=== PATIENT | female | born 1955 | race Caucasian/White ===

== ENCOUNTER → 2016-12-26 | Outpatient (CLI) | payer OTHER ==
--- NOTE | 2016-12-26 13:39 | NM ---
EXAMINATION TYPE: NM bone scan whole body DATE OF EXAM: 12/26/2016 1:25 PM COMPARISON: Nuclear medicine three-phase bone scan August 22, 2009. HISTORY: Elevated alkaline phosphatase. Delayed whole-body scanning was performed following the injection of 27.2 mCi Tc 99m MDP. Images acq uired 3 hours post injection. FINDINGS: No suspicious scintigraphic uptake is seen in osseous structures to suggest metastatic dise ase to the bone or other suspicious abnormality. No suspicious calvarial uptake is clearly seen, eval uation slightly suboptimal without dedicated oblique or lateral projections. Lucency from prosthesis is felt present at level of left knee. Mild increased uptake right knee joint is felt product of dege nerative change. IMPRESSION: No scintigraphic evidence of metastatic disease to the bone or other suspicious abnormali ty.
== END | disposition home or self-care (01) ==
LOC: RADNMMAIN 09:55
PROVIDERS: ATTEND Family Medicine
DX: R74.8 Abnormal levels of other serum enzymes (principal); M54.5 Low back pain
CPT/HCPCS: 78306; A9503

== ENCOUNTER → 2018-07-10 | Outpatient (CLI) | payer MEDICARE ==
--- NOTE | 2018-07-13 10:47 | MM ---
Reason for exam: screening (asymptomatic). Last mammogram was performed 2 years and 8 months ago. History: Patient is postmenopausal. Took estrogen for 3 months beginning at age 28. Physical Findings: A clinical breast exam by your physician is recommended on an annual basis and results should be correlated with mammographic findings. MG Screening Mammo w CAD Bilateral CC and MLO view(s) were taken. Prior study comparison: October 25, 2015, bilateral MG screening mammo w CAD. August 17, 2012, [facility] DIGITAL RIGHT MAMMOGRAM w/CAD. There are scattered fibroglandular densities. Benign appearing bilateral calcifications. No suspicious abnormality. No significant changes when compared with prior studies. ASSESSMENT: Benign, BI-RAD 2 RECOMMENDATION: Routine screening mammogram of both breasts in 1 year.
== END | disposition home or self-care (01) ==
LOC: RADMAMWWP 13:18
PROVIDERS: ATTEND Family Medicine
DX: Z12.31 Encounter for screening mammogram for malignant neoplasm of breast (principal)
CPT/HCPCS: 77067

== ENCOUNTER → 2018-11-24 | Outpatient (CLI) | payer MEDICARE, OTHER ==
[2018-11-24 15:25] LABS: HCT 47.6 % (34.0-46.0); HGB 14.7 gm/dL (11.4-16.0); MCH 27.4 pg (25.0-35.0); MCHC 30.9 g/dL (31.0-37.0); MCV 88.6 fL (80.0-100.0); Mean Platelet Volume 7.3; Platelet Count 249 k/uL (150-450); RBC 5.37 m/uL (3.80-5.40); RDW 14.4 % (11.5-15.5); WBC 10.6 k/uL (3.8-10.6)
[2018-11-24 15:30] LABS: Appearance,Urine Cloudy (Clear); Bilirubin,Urine Negative (Negative); Blood,Urine Negative (Negative); Color,Urine Yellow; Glucose,Urine (UA) Negative (Negative); Ketones,Urine Negative (Negative); Leukocyte Esterase,Urine Large (Negative); Mucus,Urine Many /hpf; Nitrite,Urine Negative (Negative); PH, Urine 5.5 (5.0-8.0); Protein,Urine Trace (Negative); RBC,Urine 4 /hpf (0-5); Squamous Epithelial Cell,Urine 4 /hpf (0-4); Urobilinogen,Urine <2.0 mg/dL (<2.0); WBC,Urine 74 /hpf (0-5)
[2018-11-24 15:34] LABS: INR 0.9 (<1.2); Partial Thromboplastin Time 22.7 sec (22.0-30.0); Prothrombin Time 10.2 sec (9.0-12.0)
[2018-11-24 15:36] LABS: Albumin 4.5 g/dL (3.5-5.0); Calcium 10.1 mg/dL (8.4-10.2); Potassium 4.8 mmol/L (3.5-5.1); Total Bilirubin 0.6 mg/dL (0.2-1.3)
== END | disposition home or self-care (01) ==
LOC: LABPAT 14:08
PROVIDERS: ATTEND Orthopaedic Surgery
DX: Z01.818 Encounter for other preprocedural examination (principal); Z01.812 Encounter for preprocedural laboratory examination
CPT/HCPCS: 36415; 80053; 81001; 85027; 85610; 85730; 87070; 93005

== ENCOUNTER 2018-12-14 06:12 | Inpatient (IN) | payer MEDICARE, OTHER ==
[~2018-12-14 06:12] MED LIST: ACETAMINOPHEN TAB 500 MG TAB PO ONE; DEXAMETHASONE SOD PHOSPHATE 10 MG/ML 1 ML VIAL IV ONE; HYDROmorphone 0.5 MG/0.5 ML SYRINGE IVP PRN; LIDOCAINE 1% 20 ML VIAL (10MG/ML) FOR IV START INTRADERMA PRN; MELOXICAM 7.5 MG TAB PO ONE; MIDAZOLAM 2 MG/2 ML VIAL IV PRN; ONDANSETRON 4 MG/2 ML VIAL IVP ONE; TRANEXAMIC ACID 1,000 MG in SODIUM CHLORIDE 0.9% 100 ML IVPB ONE; ceFAZolin 3 GM in SODIUM CHLORIDE 0.9% 100 ML IVPB ONE; fentaNYL (PF) 50 MCG/ML 2 ML AMP IV PRN
[2018-12-14] MEDS ORDERED: ROPIVACAINE 246.25 MG, EPINEPHrine 0.5 MG, KETOROLAC 30 MG, cloNIDine HCL/PF 80 MCG, WA... MISCELLANE ONE ×5 (06:44)
[2018-12-14] MEDS: LACTATED RINGERS 1,000 ML IV SCH ×3 (07:25→20:43)
[2018-12-14] MEDS ORDERED: SUCCINYLCHOLINE CHLORIDE 100 MG/5 ML SYR IV ONE (07:30)
[2018-12-14] MEDS ORDERED: NEOSTIGMINE 1 MG/ML 10 ML VIAL ONE (07:30)
[2018-12-14] MEDS ORDERED: TRANEXAMIC ACID 1,000 MG/10 ML VIAL ONE (07:30)
[2018-12-14] MEDS ORDERED: ROCURONIUM BROMIDE 10 MG/ML 10 ML VIAL IV ONE (07:30)
[2018-12-14] MEDS ORDERED: GLYCOPYRROLATE 0.2 MG/ML 2 ML VIAL ONE (07:30)
[2018-12-14] MEDS ORDERED: HYDROmorphone (PF) 1 MG/ML ONE (07:30)
[2018-12-14] MEDS ORDERED: LIDOCAINE 1% INJ 10MG/ML (20 ML MDV) ONE (07:30)
[2018-12-14] MEDS ORDERED: PROPOFOL 10 MG/ML 20 ML VIAL IV ONE (07:30)
[2018-12-14] MEDS ORDERED: fentaNYL (PF) 50 MCG/ML 2 ML AMP ONE (07:30)
[2018-12-14] MEDS ORDERED: MIDAZOLAM 2 MG/2 ML VIAL ONE (07:30)
[2018-12-14] MEDS ORDERED: SODIUM CHLORIDE 0.9% 100 ML BAG ONE (07:30)
[2018-12-14] MEDS ORDERED: ceFAZolin 3,000 MG in SODIUM CHLORIDE 0.9% IRRIGATIO 3,000 ML IRRIGATION ONE (07:36)
[2018-12-14] MEDS ORDERED: LACTATED RINGERS 1,000 ML IV ONE (08:32)
--- NOTE | 2018-12-14 09:14 | P.OP ---
Date of Procedure: 12/14/18 Procedure(s) Performed: PREOPERATIVE DIAGNOSIS: Right knee severe osteoarthritis with genu varum POSTOPERATIVE DIAGNOSIS: Right knee severe osteoarthritis with genu varum; 2. Diminished bone quality/osteopenia/osteoporosis OPERATION: Right knee cemented total replacement arthroplasty. ANESTHESIA: Spinal ESTIMATED BLOOD LOSS: 100 ml. NAUTICAL INSTRUMENT MECHANIC: Abigail Rogers PA-C (assistance with: patient positioning, retraction, exposure, hemostasis, leg positioning, implantation, irrigation, closure, dr ronnell) COMPLICATIONS: None apparent. COMPONENTS IMPLANTED: Persona system from [place] with tibial stem extension INDICATIONS: Mrs. Garza is a 63-year-old female with a history of knee osteoarthritis. The patient's knee is end-stage, and conservative management has failed. The operation of knee replacement has been discussed at length in the office, as well as potential risks and complications. These are inclusive of, but not limited to: bleeding, infection, scarring, discomfort, blood vessel and nerve damage, need for further surgery, failure to relieve symptoms, persistence, recurrence, or worsening of problems, loosening, dislocation, wear, blood clot, pulmonary embolism, , gait dysfunction, stiffness, and other risks as discussed in the office. The patient elects to proceed and the consent form has been signed. PROCEDURE: The patient was taken to the operating room and positioned on the operating room table in the supine position. Anesthesia was initiated. Care w as taken to make sure that all pressure points were adequately padded. The operative lower extremity was prepped and draped in the usual aseptic fashion using ChloraPrep. Ioban drape was used for the case and the patient received intravenous antibiotics within one hour of the incision. A pneumotourniquet and leg knox were used for the case. The limb was exsanguinated with an Esmarch bandage and the tourniquet was inflated to 350 mmHg. Time-out was called confirming the patient's identity, side, procedure and administration of antibiotics. The incision was then created midline directly over the knee, carried down through skin and into the subcutaneous tissues and down to fascia. Full thickness subcutaneous medial flap was developed. Medial parapatellar arthrotomy was performed and the interior of the knee was inspected. There was end-stage osteoarthritis of the knee with a mild to moderate genu varum type deformity. The fat pad was excised and proximal medial release on the tibia was completed using meticulous dissection and a curved osteotome. The anterior cruciate ligament was taken down. Note was made of significant attrition of the anterior and significant degenerative appearance of the posterior cruciate ligaments. The exposure was excellent. The knee was flexed 90 degrees and the patella was everted. A spot was chosen on the femur approximately 1 cm anterior to the posterior cruciate ligament insertion and an intramedullary hole was created within the femur. The intramedullary guide was then set to 5 degrees of valgus. The distal cutting block was attached and pinned into position. An appropriate amount of distal femoral resection was set. The oscillating saw was then used to make the distal femoral cut. This cut was confirmed to be flat with the flat end of an osteotome. The retractors were placed around the tibia and the tibial surface was addressed. The angle and depth of resection was adjusted using an extramedullary cutting guide. The guide had a built-in 3 degree posterior slope cut. Once the cutting guide was adjusted appropriately and in line with the axis of the tibia and confirmed to be in good position in relation to the second metatarsal and transmalleolar axis, the tibial cut was then created with protection of the posterior neurovascular structures and the collateral ligaments. Note was made of diminished bone quality and therefore a short tibial stem extension was planned. The tibial cut surface was removed and sized. Femoral sizing was then accomplished using anterior referencing. Care was taken to analyze the posterior condyles for signs of deficiency or severe wear, and adjustments to the guide were made, as appropriate. 3 degree external rotation pins were placed. The cutting jig for the femur was applied to these pins. The planned cuts were further analyzed prior to performing them with the oscillating saw. No femoral notching was produced. Bone fragments were removed and the cut surfaces were finished, as necessary, with a reciprocating saw. Spacer block technique was then used to confirm that the flexion and extension gaps were equal. Soft tissue releases and adjustment of the tibial and/or femo ral cuts were made, as necessary, until the gaps were equal. This included release of the posterior cruciate ligament, which was tight in this patient and, if left unreleased, would have resulted in poor kinematics and possibly early loosening. The femur was then further finished for a posterior cruciate ligament substituting component. Patellar resurfacing was performed using a reamer. The size of the required patellar component was estimated and the patellar surface was then reamed down to a residual thickness which would recreate the osage thickness with the component. The exact placement of the patellar component was adjusted for position based on preoperative x-rays and intraoperative findings. Prior to placing trial components, anesthetic solution consisting of ropivicaine with epinephrine, ketorolac, and clonidine was injected carefully and methodically in a grid pattern using aspiration technique into the soft tissue around the knee circumferentially, starting with the deeper tissues first and progressing to fascia, and then finally the skin/subcutaneous tissue. Particular care was taken when injecting the posterior capsule. The trial components were inserted. The tibial tray was allowed to self center and the patella was noted to track very well. The position of the tibial component was marked and the tibia was then finished for a stemmed tibial component. Cement was mixed on the back table and applied to the final components. Trial components were removed and the cut surfaces of the bone were pulse lavaged thoroughly and dried. Cement was then applied to the tibial surface and pressurized into the surface using finger pressurization technique. The tibial component with stem extension was then applied and excess cement was removed after it was impacted securely and noted to be flush with the cut surface. In similar fashion, the cement was applied to the cut femoral surface, pressurized in using finger pressurization and the component was impacted into place. Excess cement was removed. The polyethylene spacer was then implanted and locked into position. The patellar component was then applied in similar technique and a patellar clamp was used to hold the patella in place as the cement hardened. Once the cement had fully hardened, the knee was reinspected. Any other cement extrusion was removed and final kinematic testing showed range of motion from 0 to 130 degrees with excellent stability, both medially and laterally and appropriate alignment of the leg. Patellar tracking was excellent. The knee was then thoroughly pulse lavaged with normal saline. The tourniquet was deflated and hemostasis was obtained with electrocautery and IV tranexamic acid, 1 g given at the start of the operation and 1 g at the start of closure. Closure was with #2 Ethibond in the fascia/capsule and supplemented with #2 Quill, 2-0 Vicryl suture was used for the subcutaneous tissues and 3-0 Quill for the skin. Dermabond/Steri-Strips were then applied. A lightly compressive dressing was applied using Webril and an Luc wrap. The patient was then transferred to [facility] and taken to the recovery room in stable condition. Sponge and needle counts were correct.
[2018-12-14] MEDS ORDERED: BISACODYL 10 MG SUPP RECTAL PRN (09:49)
[2018-12-14] MEDS ORDERED: NA PHOS,M-B/NA PHOS,DI-BA 133 ML ENEMA RECTAL PRN (09:49)
[2018-12-14] MEDS ORDERED: HYDROmorphone 0.5 MG/0.5 ML SYRINGE IVP PRN ×3 (09:49)
[2018-12-14] MEDS ORDERED: HYDROcodone/APAP 5-325MG 1 EACH TAB PO PRN (09:49)
[2018-12-14] MEDS ORDERED: MAGNESIUM HYDROXIDE 2,400 MG/10 ML CUP PO PRN (09:49)
[2018-12-14] MEDS ORDERED: NALOXONE 0.4 MG/ML 1 ML VIAL IV PRN (09:49)
[2018-12-14] MEDS ORDERED: ONDANSETRON 4 MG/2 ML VIAL IVP PRN (09:49)
[2018-12-14] MEDS ORDERED: ROPIVACAINE 1,100 MG, SODIUM CHLORIDE 0.9% 500 ML 330 ML MISCELLANE PRN ×2 (09:58)
--- NOTE | 2018-12-14 10:14 | XR ---
EXAMINATION TYPE: XR knee limited RT DATE OF EXAM: 12/14/2018 CLINICAL HISTORY: Right knee pain and arthritis status post total knee replacement. TECHNIQUE: Portable AP and crosstable lateral views of the right knee are obtained immediately posto peratively. COMPARISON: None. FINDINGS: Metallic hardware from total right knee arthroplasty is seen and appears satisfactory in a lignment and position. There is evidence of recent surgery with diffuse subcutaneous gas and percuta neous suprapatellar surgical drain noted. IMPRESSION: METALLIC HARDWARE FROM TOTAL RIGHT KNEE ARTHROPLASTY IS SATISFACTORY IN ALIGNMENT.
[2018-12-14 11:58] VITALS: BMI 40.4
[2018-12-14] MEDS: ceFAZolin 3 GM in SODIUM CHLORIDE 0.9% 100 ML IVPB SCH (17:45)
[2018-12-14] MEDS ORDERED: amLODIPine 10 MG TAB PO SCH (18:00)
[2018-12-14] MEDS ORDERED: SENNOSIDES-DOCUSATE SODIUM 1 EACH TAB PO SCH (21:00)
[2018-12-14] MEDS ORDERED: TEMAZEPAM 15 MG CAP PO PRN (22:00)
[2018-12-15] MEDS: HYDROcodone/APAP 5-325MG 1 EACH TAB PO PRN ×3 (00:16→13:38)
[2018-12-15] MEDS: ceFAZolin 3 GM in SODIUM CHLORIDE 0.9% 100 ML IVPB SCH (00:27)
[2018-12-15] MEDS: LACTATED RINGERS 1,000 ML IV SCH ×2 (01:07)
[2018-12-15 05:20] VITALS: TEMP 98.4
--- NOTE | 2018-12-15 07:17 | P.PN ---
Progress Note - Text 12/15 652am 63-year-old female status post total knee replacement by Dr. Alvares. Patient has an On-Q pump for postop pain control with solution running at 8 mL an hour with a VAS of 2, doing very well. Plan to continue On-Q pump infusion
[2018-12-15 08:43] VITALS: BP 114/53; PULSE 77; RESP 18
[2018-12-15 08:58] LABS: Basophils % (A) 0 %; Eosinophils % (A) 0 %; HCT 39.7 % (34.0-46.0); HGB 12.5 gm/dL (11.4-16.0); Hypochromasia Slight; Lymphocytes # (A) 1.7 k/uL (1.0-4.8); Lymphocytes % (A) 11 %; MCH 27.9 pg (25.0-35.0); MCHC 31.4 g/dL (31.0-37.0); MCV 88.7 fL (80.0-100.0); Monocytes # (A) 0.9 k/uL (0-1.0); Monocytes % (A) 6 %; Neutrophils # (A) 12.7 k/uL (1.3-7.7); Neutrophils % (A) 80 %; Platelet Count 241 k/uL (150-450); RBC 4.47 m/uL (3.80-5.40); RDW 14.7 % (11.5-15.5); WBC 15.8 k/uL (3.8-10.6)
[2018-12-15] MEDS ORDERED: RIVAROXABAN 10 MG TAB PO SCH (09:00)
[2018-12-15] MEDS ORDERED: MELOXICAM 7.5 MG TAB PO SCH (09:00)
[2018-12-15] MEDS ORDERED: ASPIRIN 81 MG PO SCH (09:00)
--- NOTE | 2018-12-15 09:43 | P.DS ---
Providers Date of admission: 12/14/18 06:12 Expected date of discharge: 12/15/18 Attending physician: Jarad Alvares Consults: 12/14/18 09:49 Consult Physician Routine Consulting Provider: Souleymane Lopez Consult Reason/Comments: Medical Management Do you want consulting provider notified?: Yes Primary care physician: Souleymane Lopez - Discharge Diagnosis(es) (1) Primary localized osteoarthritis of left knee Current Visit: Yes Status: Acute (2) Status post total left knee replacement Current Visit: Yes Status: Acute Hospital Course: This is a 63-year-old female who was last seen with complaint of continued left knee pain. The patient has a known history of degenerative arthritis of the left knee and presents to discuss surgical options. After discussion and consideration the patient elects to proceed with total left knee arthroplasty. The patient is seen preoperatively by her primary care physician and cleared for surgery. The patient is admitted to [facility] for total left knee arthroplasty. The procedures performed without complication or sequelae. He is doing well postoperatively. Vital signs are stable at discharge. Labs are stable at discharge. the patient is ambulating well with walker with minimal assistance. The patient is discharged to home on postop day #1 pending medical clearance. Please see orders and refer to the [facility] rec for accurate list of medications. Patient Condition at Discharge: Good Plan - Discharge Summary Discharge Rx Participant: Yes New Discharge Prescriptions: New Aspirin [Adult Low Dose Aspirin EC] 81 mg PO DAILY #1 tablet. HYDROcodone/APAP 5-325MG [[place] 5-325] 1 - 2 each PO Q4-6H PRN #50 tab PRN Reason: Pain Sennosides-Docusate Sodium [Senokot-S] 1 tab PO BID #60 tablet Rivaroxaban [Xarelto] 10 mg PO DAILY #5 tab No Action Aspirin 81 mg PO DAILY amLODIPine [Norvasc] 10 mg PO DAILY@1800 Atorvastatin [Lipitor] 80 mg PO DAILY@1800 Discharge Medication List Aspirin 81 mg PO DAILY 12/03/18 [History] Atorvastatin [Lipitor] 80 mg PO DAILY@1800 12/03/18 [History] amLODIPine [Norvasc] 10 mg PO DAILY@1800 12/03/18 [History] Aspirin [Adult Low Dose Aspirin EC] 81 mg PO DAILY #1 tablet. 12/15/18 [Rx] HYDROcodone/APAP 5-325MG [[place] 5-325] 1 - 2 each PO Q4-6H PRN #50 tab 12/15/18 [Rx] Rivaroxaban [Xarelto] 10 mg PO DAILY #5 tab 12/15/18 [Rx] Sennosides-Docusate Sodium [Senokot-S] 1 tab PO BID #60 tablet 12/15/18 [Rx] Follow up Appointment(s)/Referral(s): Abigail Rogers PAC [PHYSICIAN MARINE [employer] TECHNICIAN] - 2 Weeks Activity/Diet/Wound Care/Special Instructions: May bear weight as tolerated with walker. May shower if no drainage from the incision. Begin outpatient physical therapy this week. Discharge Disposition: HOME SELF-CARE
--- NOTE | 2018-12-15 16:01 | PN ---
PROGRESS NOTE DATE OF SERVICE: 12/15/2018 CHIEF COMPLAINT: Status post right TKA. HISTORY OF PRESENT ILLNESS: This lady is doing very well. She does not have a lot of difficulty with discomfort. She has not had any shortness of breath, chest pain, etc. PHYSICAL EXAMINATION: Color is good. Chest is clear. Cardiac exam is normal. Abdomen is soft, nontender. Dressing is dry. IMPRESSION: Status post right total knee arthroplasty. PLAN: She thinks she is going home today. We will follow her in the office after she leaves. MMODL / IJN: [id number] /
--- NOTE | 2018-12-15 20:28 | CONS ---
CONSULTATION CHIEF COMPLAINT: Arthritis, right knee. HISTORY OF PRESENT ILLNESS: This is another admission for this 63-year-old white female who is in for elective right TKA. She has a history of hypertension and hyperlipidemia. She has been having increasing amounts of difficulty walking on the right knee and has come in for elective total knee replacement. REVIEW OF SYSTEMS: She has had no headaches, neurologic problems, shortness of breath, chest pain, cough, hemoptysis, heart disease, murmurs, rheumatic fever, orthopnea, PND, abdominal pain, nausea, vomiting, hematemesis, melena, hematochezia, cirrhosis, gallbladder disease, renal failure, dysuria, frequency, urgency, incontinence, diabetes, etc. Past medical history, family history, and personal and social histories can all be found in her admitting summary. She is on: 1. Atorvastatin 80 once a day. 2. Amlodipine 10 once a day. 3. Vitamin D 50,000 units once a month. 4. Aspirin 81 mg. Surgically she has had: 1. Hysterectomy. 2. Appendectomy. 3. Cholecystectomy. She has quit smoking. PHYSICAL EXAMINATION: Blood pressure is 126/88, pulse 64, respirations 12, and she is afebrile. In general she appeared to be well developed, well nourished, in no acute distress. Skin color is normal. Skin is warm and dry. Lymph nodes are not enlarged. Head, ears, eyes, nose, mouth and throat are normal. Neck veins are not distended. Thyroid is not enlarged. Chest is clear. Cardiac exam is normal. Abdomen is soft, nontender. Extremities are normal except for the right knee. Neurologically she is intact. Pulses are good. IMPRESSION: 1. Osteoarthritis of the right knee. 2. Hypertension. RECOMMENDATIONS: None at this time. MMODL / IJN: [id number] /
== END 2018-12-15 14:35 | disposition home health service (06) | DRG 470 ==
LOC: 2ORMAIN 06:12 → 4SSUR 09:48
PROVIDERS: ADMIT Orthopaedic Surgery; ATTEND Orthopaedic Surgery
PROC: 0SRC0J9 Replacement of Right Knee Joint with Synthetic Substitute, Cemented, Open Approach (ICD-10-PCS; principal; 2018-12-14 07:30)
DX: M17.11 Unilateral primary osteoarthritis, right knee (principal); Z68.41 Body mass index [BMI] 40.0-44.9, adult; E66.01 Morbid (severe) obesity due to excess calories; M21.161 Varus deformity, not elsewhere classified, right knee; M81.0 Age-related osteoporosis without current pathological fracture; E11.9 Type 2 diabetes mellitus without complications; I10 Essential (primary) hypertension; E78.5 Hyperlipidemia, unspecified; Z79.82 Long term (current) use of aspirin; Z79.899 Other long term (current) drug therapy; Z87.891 Personal history of nicotine dependence; Z96.652 Presence of left artificial knee joint; Z90.710 Acquired absence of both cervix and uterus; Z90.49 Acquired absence of other specified parts of digestive tract; Z87.81 Personal history of (healed) traumatic fracture
CPT/HCPCS: 85025; 88300

== ENCOUNTER 2019-05-20 16:50 | Inpatient (IN) | payer MEDICARE, OTHER ==
[2019-05-20 18:24] VITALS: BMI 40.1
[2019-05-20] MEDS: BUDESONIDE 0.5 MG/2 ML NEBU INHALATION SCH (20:07)
[2019-05-20] MEDS: ALBUTEROL NEBULIZED 2.5 MG/3 ML INHALATION PRN (20:07)
[2019-05-20 21:00] LABS: Basophils # (A) 0.1 k/uL (0-0.2); Basophils % (A) 1 %; Eosinophils % (A) 0 %; HCT 46.5 % (34.0-46.0); HGB 14.5 gm/dL (11.4-16.0); Hypochromasia Slight; Lymphocytes # (A) 2.1 k/uL (1.0-4.8); Lymphocytes % (A) 13 %; MCH 28.1 pg (25.0-35.0); MCHC 31.2 g/dL (31.0-37.0); MCV 90.2 fL (80.0-100.0); Mean Platelet Volume 7.1; Monocytes # (A) 0.6 k/uL (0-1.0); Monocytes % (A) 4 %; Neutrophils # (A) 13.1 k/uL (1.3-7.7); Neutrophils % (A) 80 %; Platelet Count 236 k/uL (150-450); RBC 5.16 m/uL (3.80-5.40); RDW 15.2 % (11.5-15.5); WBC 16.5 k/uL (3.8-10.6)
[2019-05-20 21:22] LABS: Albumin 4.2 g/dL (3.5-5.0); Calcium 9.7 mg/dL (8.4-10.2); Potassium 3.8 mmol/L (3.5-5.1); Total Bilirubin 0.3 mg/dL (0.2-1.3); Total Protein 7.5 g/dL (6.3-8.2)
--- NOTE | 2019-05-20 21:22 | XR ---
EXAMINATION TYPE: XR chest 2V DATE OF EXAM: 05/20/2019 COMPARISON: NONE HISTORY: Pain TECHNIQUE: Frontal and lateral views of the chest are obtained. FINDINGS: Heart and mediastinum are normal. Lungs are clear. Diaphragm is normal. Bony thorax appear s normal. Pulmonary vascularity is normal. IMPRESSION: Normal chest
[2019-05-20] MEDS: DEXTROSE 5%-0.2% NACL 1,000 ML IV SCH (22:15)
[2019-05-20] MEDS: CEPHALEXIN 500 MG CAP PO SCH (22:24)
[2019-05-21] MEDS: methylPREDNISolone SOD SUCCI 40 MG/ML 1 ML VIAL IV SCH ×4 (00:07→23:40)
[2019-05-21 05:43] LABS: Appearance,Urine Clear (Clear); Bilirubin,Urine Negative (Negative); Blood,Urine Negative (Negative); Color,Urine Light Yellow; Glucose,Urine (UA) Negative (Negative); Ketones,Urine Negative (Negative); Leukocyte Esterase,Urine Negative (Negative); Nitrite,Urine Negative (Negative); Protein,Urine Negative (Negative); Specific Gravity,Urine 1.014 (1.001-1.035); Urobilinogen,Urine <2.0 mg/dL (<2.0)
[2019-05-21] MEDS: BUDESONIDE 0.5 MG/2 ML NEBU INHALATION SCH ×2 (07:41→19:25)
[2019-05-21] MEDS: ALBUTEROL NEBULIZED 2.5 MG/3 ML INHALATION PRN ×2 (07:41→19:25)
[2019-05-21] MEDS: ASPIRIN 81 MG PO SCH (08:11)
[2019-05-21] MEDS: LEVOFLOXACIN 500 MG TAB PO SCH (08:11)
[2019-05-21] MEDS: CEPHALEXIN 500 MG CAP PO SCH ×4 (08:11→21:07)
[2019-05-21] MEDS: HYDROCHLOROTHIAZIDE 50 MG TAB PO SCH (08:12)
[2019-05-21 09:44] LABS: Glucose,Whole Blood 505 mg/dL (75-99)
[2019-05-21] MEDS: DEXTROSE 5%-0.2% NACL 1,000 ML IV SCH (09:52)
[2019-05-21] MEDS: SODIUM CHLORIDE 0.9% 1,000 ML IV SCH ×2 (11:44→23:43)
[2019-05-21 11:46] LABS: Glucose,Whole Blood 362 mg/dL (75-99)
[2019-05-21] MEDS: INSULIN ASPART (NovoLOG) 100 UNIT/ML VIAL SQ SCH ×3 (11:58→21:28)
[2019-05-21] MEDS ORDERED: INSULIN DETEMIR (LEVEMIR) 100 UNIT/ML SYR SQ ONE (12:00)
[2019-05-21 17:20] LABS: Glucose,Whole Blood 239 mg/dL (75-99)
[2019-05-21] MEDS: ATORVASTATIN 80 MG TAB PO SCH (17:20)
[2019-05-21] MEDS: amLODIPine 10 MG TAB PO SCH (17:20)
--- NOTE | 2019-05-21 18:57 | HP ---
HISTORY AND PHYSICAL CHIEF COMPLAINT: Ten-day history of cough, shortness of breath, fever and chills, not responding to treatment. HISTORY OF PRESENT ILLNESS: This is the first known admission for this 63-year-old white female. She started with a URI and then went into a slightly productive cough. She was started on antibiotics. Chest x-ray suggested a minimal lower lobe infiltrate on both sides. She was started on Levaquin and came back in a few days and was not doing any better. Medrol was then added by mouth, and she continued to deteriorate. She came into the office on the day of admission with increasing shortness of breath, anterior chest discomfort and coughing up yellow sputum. She had tachycardia and it was decided that she would be admitted for IV fluids, antibiotics and updrafts. REVIEW OF SYSTEMS: She has had no syncope, neurologic problems, difficulty with vision or hearing, hemoptysis, history of heart disease, abdominal pain, nausea, vomiting, hematemesis, melena, hematochezia, jaundice, renal failure, hematuria, frequency, urgency, dysuria, diabetes, etc. Past medical history, family history, and personal and social histories reveal that she is NOT ALLERGIC TO ANY MEDICATION. She is on: 1. The Medrol Dosepak. 2. Levaquin 500 once a day. 3. Hydrochlorothiazide 50 mg a day. 4. Amlodipine 10 mg once a day. 5. Atorvastatin 80 mg at bedtime. 6. Vitamin D3 50,000 units a month. 7. Aspirin 81 mg. Remainder of her history is unremarkable. She used to smoke but does not any longer. She does not drink. PHYSICAL EXAMINATION: Blood pressure 112/76 with a pulse of 98, respirations of 36 and a temperature of 99. In general she appeared to be acutely ill. Skin was dry. Head, ears, eyes, nose, mouth and throat were normal. Neck veins were not distended. Thyroid was not enlarged. Chest demonstrated poor breath sounds bilaterally with extensive rales and rhonchi throughout. Cardiac exam demonstrated sinus tachycardia. Abdomen was soft, nontender. Extremities were normal. Neurologically she was intact. She is admitted to the hospital with the diagnoses: 1. Bronchopneumonia. 2. Bronchitis. PLAN: 1. Bed rest. 2. IV fluids. 3. IV and inhaled steroids. MMODL / IJN: [id number] /
--- NOTE | 2019-05-21 19:27 | PN ---
PROGRESS NOTE CHIEF COMPLAINT: Pneumonitis. HISTORY OF PRESENT ILLNESS: This lady is not doing any better. She is still very short of breath and very congested. She has not had a temperature during the night. PHYSICAL EXAMINATION: She is pale. Head, ears, eyes, nose, mouth and throat are normal. Neck veins are not distended. Chest demonstrates poor breath sounds with scattered rales and rhonchi. She has a very harsh and congested cough. She has some anterior chest pain when she coughs. IMPRESSION: 1. Bronchopneumonia. 2. Bronchitis. 3. Hyperglycemia. PLAN: Continue with current treatment plan, but start long-acting insulin and sliding scale. MMODL / IJN: [id number] /
[2019-05-21 20:24] LABS: Hemoglobin A1C 6.3 % (4.0-6.0)
[2019-05-21 21:12] LABS: Glucose,Whole Blood 288 mg/dL (75-99)
[2019-05-21] MEDS: BUTALB/APAP/CAFF 50-325-40MG TAB PO PRN (23:18)
[2019-05-22] MEDS ORDERED: INSULIN DETEMIR (LEVEMIR) 100 UNIT/ML SYR SQ SCH (07:00)
[2019-05-22 07:08] LABS: Glucose,Whole Blood 284 mg/dL (75-99)
[2019-05-22] MEDS: ALBUTEROL NEBULIZED 2.5 MG/3 ML INHALATION PRN ×4 (08:04→19:46)
[2019-05-22] MEDS: BUDESONIDE 0.5 MG/2 ML NEBU INHALATION SCH ×2 (08:04→19:46)
[2019-05-22] MEDS: INSULIN DETEMIR (LEVEMIR) 100 UNIT/ML SYR SQ SCH (09:01)
[2019-05-22] MEDS: INSULIN ASPART (NovoLOG) 100 UNIT/ML VIAL SQ SCH ×4 (09:01→22:14)
[2019-05-22] MEDS: BUTALB/APAP/CAFF 50-325-40MG TAB PO PRN ×2 (09:02→18:32)
[2019-05-22] MEDS: methylPREDNISolone SOD SUCCI 40 MG/ML 1 ML VIAL IV SCH ×2 (09:08→17:29)
[2019-05-22] MEDS: CEPHALEXIN 500 MG CAP PO SCH (09:08)
[2019-05-22] MEDS: ASPIRIN 81 MG PO SCH (09:11)
[2019-05-22] MEDS: LEVOFLOXACIN 500 MG TAB PO SCH (09:11)
[2019-05-22] MEDS: HYDROCHLOROTHIAZIDE 50 MG TAB PO SCH (10:25)
--- NOTE | 2019-05-22 10:28 | XR ---
EXAMINATION TYPE: XR chest 2V DATE OF EXAM: 05/22/2019 HISTORY: pneumonitis, progress. REFERENCE: Previous study dated 05/20/2019. FINDINGS: The study is rotated towards the right. Allowing for this, the lungs are clear. Pleural [facility] are clear. The heart is not enlarged. IMPRESSION: NO DEFINITE ACUTE INTRATHORACIC ABNORMALITY.
[2019-05-22 10:47] LABS: ALT 25 U/L (9-52); AST 18 U/L (14-36); African American GFR (CKD) >90 (>60 ml/min/1.73 sqM); Albumin 4.2 g/dL (3.5-5.0); Alkaline Phosphatase 165 U/L (38-126); Anion Gap 13 mmol/L; Blood Urea Nitrogen 27 mg/dL (7-17); Calcium 9.6 mg/dL (8.4-10.2); Carbon Dioxide 27 mmol/L (22-30); Chloride 98 mmol/L (98-107); Glucose 388 mg/dL (74-99); Potassium 3.7 mmol/L (3.5-5.1); Sodium 138 mmol/L (137-145); Total Bilirubin 0.4 mg/dL (0.2-1.3); Total Protein 7.4 g/dL (6.3-8.2)
[2019-05-22 10:53] LABS: Basophils # (A) 0.1 k/uL (0-0.2); Basophils % (A) 0 %; Eosinophils % (A) 0 %; HCT 45.8 % (34.0-46.0); HGB 14.4 gm/dL (11.4-16.0); Hypochromasia Moderate; Lymphocytes # (A) 0.9 k/uL (1.0-4.8); Lymphocytes % (A) 5 %; MCH 28.4 pg (25.0-35.0); MCHC 31.5 g/dL (31.0-37.0); MCV 90.2 fL (80.0-100.0); Mean Platelet Volume 6.5; Monocytes # (A) 0.6 k/uL (0-1.0); Monocytes % (A) 4 %; Neutrophils # (A) 14.9 k/uL (1.3-7.7); Neutrophils % (A) 89 %; Platelet Count 287 k/uL (150-450); RBC 5.08 m/uL (3.80-5.40); RDW 14.7 % (11.5-15.5); WBC 16.8 k/uL (3.8-10.6)
[2019-05-22] MEDS: CEFUROXIME 750 MG in SODIUM CHLORIDE 0.9% 50 ML IVPB SCH ×2 (11:06→17:28)
[2019-05-22 11:43] LABS: Glucose,Whole Blood 311 mg/dL (75-99)
[2019-05-22] MEDS: SODIUM CHLORIDE 0.9% 1,000 ML IV SCH (12:28)
[2019-05-22 17:06] LABS: Glucose,Whole Blood 262 mg/dL (75-99)
--- NOTE | 2019-05-22 17:12 | PN ---
PROGRESS NOTE CHIEF COMPLAINT: Bronchitis and pneumonitis. HISTORY OF PRESENT ILLNESS: This lady is just about the same. She still continues to have the very harsh, frequent and slightly productive cough. Blood sugars have been elevated due to steroids and these will be managed. PHYSICAL EXAMINATION: She has extensive rales, rhonchi and a harsh cough which is minimally productive. Cardiac exam is normal. IMPRESSION: 1. Bronchial pneumonia. 2. Bronchitis. 3. Elevated blood sugar secondary to steroids. PLAN: resource recovery specialist the IV antibiotics and continue with IV fluids. MMODL / IJN: [id number] /
[2019-05-22] MEDS: amLODIPine 10 MG TAB PO SCH (17:28)
[2019-05-22] MEDS: ATORVASTATIN 80 MG TAB PO SCH (17:29)
[2019-05-22 20:37] LABS: Glucose,Whole Blood 254 mg/dL (75-99)
[2019-05-23] MEDS: CEFUROXIME 750 MG in SODIUM CHLORIDE 0.9% 50 ML IVPB SCH ×4 (00:45→23:53)
[2019-05-23] MEDS: methylPREDNISolone SOD SUCCI 40 MG/ML 1 ML VIAL IV SCH ×4 (00:45→23:52)
[2019-05-23] MEDS: SODIUM CHLORIDE 0.9% 1,000 ML IV SCH ×3 (01:11→23:57)
[2019-05-23 07:09] LABS: Glucose,Whole Blood 222 mg/dL (75-99)
[2019-05-23] MEDS: INSULIN ASPART (NovoLOG) 100 UNIT/ML VIAL SQ SCH ×4 (08:29→21:32)
[2019-05-23] MEDS: HYDROCHLOROTHIAZIDE 50 MG TAB PO SCH (08:29)
[2019-05-23] MEDS: ASPIRIN 81 MG PO SCH (08:29)
[2019-05-23] MEDS: BUTALB/APAP/CAFF 50-325-40MG TAB PO PRN ×2 (08:29→17:31)
[2019-05-23] MEDS: INSULIN DETEMIR (LEVEMIR) 100 UNIT/ML SYR SQ SCH (08:29)
[2019-05-23] MEDS: BUDESONIDE 0.5 MG/2 ML NEBU INHALATION SCH ×2 (09:33→21:24)
[2019-05-23] MEDS: ALBUTEROL NEBULIZED 2.5 MG/3 ML INHALATION PRN ×2 (09:33→21:24)
[2019-05-23] MEDS: LEVOFLOXACIN 750MG-D5W PMX 750 MG in DEXTROSE/WATER 1 150ML.BAG IVPB SCH (09:46)
[2019-05-23 11:51] LABS: Glucose,Whole Blood 240 mg/dL (75-99)
--- NOTE | 2019-05-23 15:55 | PN ---
PROGRESS NOTE CHIEF COMPLAINT: Pneumonitis. HISTORY OF PRESENT ILLNESS: This lady is finally doing a bit better. She is less short of breath and less congested. Started to bring up a small amount of phlegm. She has had no hemoptysis. She has had no fever or chills. PHYSICAL EXAMINATION: She still has extensive rales, rhonchi and wheezing on inspiration and expiration throughout both lung flowers. Cardiac exam is normal. Hydration is good. Temperature is down. IMPRESSION: 1. Bronchial pneumonia, bilateral. 2. Tracheobronchitis. PLAN: Continue with treatments and she may be able to go home tomorrow or the next day. MMODL / IJN: [id number] /
[2019-05-23 17:15] LABS: Glucose,Whole Blood 167 mg/dL (75-99)
[2019-05-23] MEDS: ATORVASTATIN 80 MG TAB PO SCH (17:31)
[2019-05-23] MEDS: amLODIPine 10 MG TAB PO SCH (17:31)
[2019-05-23 20:30] LABS: Glucose,Whole Blood 209 mg/dL (75-99)
[2019-05-24] MEDS: BUTALB/APAP/CAFF 50-325-40MG TAB PO PRN ×2 (00:03→08:52)
[2019-05-24 01:13] VITALS: RESP 18; TEMP 97.9
[2019-05-24 06:23] VITALS: BP 124/74
[2019-05-24 07:09] LABS: Glucose,Whole Blood 174 mg/dL (75-99)
[2019-05-24] MEDS: ASPIRIN 81 MG PO SCH (07:48)
[2019-05-24] MEDS: INSULIN ASPART (NovoLOG) 100 UNIT/ML VIAL SQ SCH (07:48)
[2019-05-24] MEDS: HYDROCHLOROTHIAZIDE 50 MG TAB PO SCH (07:48)
[2019-05-24] MEDS: CEFUROXIME 750 MG in SODIUM CHLORIDE 0.9% 50 ML IVPB SCH (07:48)
[2019-05-24] MEDS: INSULIN DETEMIR (LEVEMIR) 100 UNIT/ML SYR SQ SCH (07:48)
[2019-05-24] MEDS: methylPREDNISolone SOD SUCCI 40 MG/ML 1 ML VIAL IV SCH (07:49)
[2019-05-24] MEDS: LEVOFLOXACIN 750MG-D5W PMX 750 MG in DEXTROSE/WATER 1 150ML.BAG IVPB SCH (09:20)
[2019-05-24] MEDS: ALBUTEROL NEBULIZED 2.5 MG/3 ML INHALATION PRN (09:22)
[2019-05-24] MEDS: BUDESONIDE 0.5 MG/2 ML NEBU INHALATION SCH (09:22)
[2019-05-24 09:25] VITALS: PULSE 80
[2019-05-24] MEDS: SODIUM CHLORIDE 0.9% 1,000 ML IV SCH (11:42)
[2019-05-24 11:43] LABS: Glucose,Whole Blood 150 mg/dL (75-99)
--- NOTE | 2019-05-24 15:04 | DS ---
DISCHARGE SUMMARY CHIEF COMPLAINT: Cough, shortness of breath and pneumonitis. HISTORY OF PRESENT ILLNESS AND PHYSICAL EXAM: Details of this lady's history and physical can be found in the initial workup. LABORATORY STUDIES: While she was in a hospital she had laboratory studies, details of which can be found in the laboratory section of her chart. COURSE IN HOSPITAL: After admission, she was placed on bedrest and started on intravenous fluids, updrafts, and antibiotics. Her shortness of breath, cough, and congestion lasted 3 or 4 days and then she she started to break. Cough became more productive and she became less short of breath. She was afebrile. She is doing well. She felt that she could go home on May 24. She will go home on usual activity, diet, medications along with antibiotics and be seen in a day or two. FINAL DIAGNOSES: 1. Bronchopneumonia. 2. Tracheobronchitis. 3. Hypertension. 4. Elevated blood sugars. OPERATIONS: None. CONSULTATIONS: None. She is improved. MMODL / IJN: [id number] /
[2019-05-24] MEDS ORDERED: CEPHALEXIN 500 MG CAP PO SCH (18:00)
[2019-05-25] MEDS ORDERED: LEVOFLOXACIN 500 MG TAB PO SCH (09:00)
[2019-05-25] MEDS ORDERED: methylPREDNISolone 4 MG TAB PO SCH (09:00)
--- NOTE | 2019-05-28 10:14 | CDI ---
Documentation Clarification Form Date: 05/28/19 From: Hue Hanley Phone: If questions call Carin Taylor @ [phone], Hours-8:30 am & 5 pm Prerna Kuhn Admit Date: 05/22/2019 1:39:00 PM Patient Name: Mary Garza Visit Number: [id number] Discharge Date: 05/24/2019 1:18:00 PM ATTENTION: The Clinical Documentation Specialists (CDI) and [facility] Coding Staff appreciate your assistance in clarifying documentation. Please respond to the clarification below the line at the bottom and electronically sign. The CDI & [facility] Coding staff will review the response and follow-up if needed. Please note: Queries are made part of the Legal Health Record. If you have any questions, please contact the author of this message via ITS. Dr. Souleymane Lopez Tracheobronchitis is documented in the DS. Please specify the acuity of this condition with terms such as: Acute Chronic Acute and chronic Acute on chronic Other (please specify in the medical record) Clinically unable to further specify Unknown MTDD
--- NOTE | 2019-06-11 15:14 | MISC ---
MISCELLANOUS REPORT There was an acute tracheobronchitis. MMODL / IJN: [id number] /
== END 2019-05-24 13:18 | disposition home or self-care (01) | DRG 195 ==
LOC: INTOOBSV 17:54 → 4MS4W 17:54 → OBSVTOIN 05-22 13:39
PROVIDERS: ADMIT Family Medicine; ATTEND Family Medicine
DX: J18.0 Bronchopneumonia, unspecified organism (principal); I10 Essential (primary) hypertension; J20.9 Acute bronchitis, unspecified; R73.9 Hyperglycemia, unspecified; T38.0X5A Adverse effect of glucocorticoids and synthetic analogues, initial encounter; Z79.82 Long term (current) use of aspirin; Z79.899 Other long term (current) drug therapy
CPT/HCPCS: 71046; 80053; 81003; 83036; 85025; 87449; 94640

== ENCOUNTER 2020-02-20 08:02 | Emergency (ER) | payer MEDICARE, OTHER ==
[2020-02-20 08:06] VITALS: TEMP 98.5
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
[2020-02-20] MEDS ORDERED: KETOROLAC 60 MG/2 ML VIAL IM STA (08:34)
[2020-02-20] MEDS ORDERED: DIAZEPAM 5 MG/ML 2 ML INJ IM ONE (08:38)
[2020-02-20 09:32] VITALS: BP 143/75; PULSE 73; RESP 16
== END 2020-02-20 09:55 | disposition home or self-care (01) ==
LOC: EC 08:02
DX: M54.41 Lumbago with sciatica, right side (principal); I10 Essential (primary) hypertension; E78.5 Hyperlipidemia, unspecified; Z79.82 Long term (current) use of aspirin; Z79.899 Other long term (current) drug therapy; Z87.891 Personal history of nicotine dependence; Z86.73 Personal history of transient ischemic attack (TIA), and cerebral infarction without residual deficits
CPT/HCPCS: 99283; 96372 ×2; J3360; J1885

== ENCOUNTER 2021-08-14 10:44 | Emergency (ER) | payer MEDICARE, OTHER ==
[2021-08-14 11:17] VITALS: RESP 18
[2021-08-14 11:22] LABS: Basophils % (A) 0 %; Eosinophils # (A) 0.2 k/uL (0-0.7); Eosinophils % (A) 1 %; HCT 44.1 % (34.0-46.0); HGB 14.2 gm/dL (11.4-16.0); Lymphocytes # (A) 0.9 k/uL (1.0-4.8); Lymphocytes % (A) 6 %; MCH 30.7 pg (25.0-35.0); MCHC 32.3 g/dL (31.0-37.0); MCV 95.2 fL (80.0-100.0); Mean Platelet Volume 7.5; Monocytes # (A) 0.6 k/uL (0-1.0); Monocytes % (A) 4 %; Neutrophils # (A) 14.2 k/uL (1.3-7.7); Neutrophils % (A) 87 %; Platelet Count 181 k/uL (150-450); RBC 4.63 m/uL (3.80-5.40); RDW 15.1 % (11.5-15.5); WBC 16.2 k/uL (3.8-10.6)
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
[2021-08-14 11:33] LABS: Albumin 3.7 g/dL (3.5-5.0); Calcium 9.3 mg/dL (8.4-10.2); Magnesium 1.3 mg/dL (1.6-2.3); Potassium 3.9 mmol/L (3.5-5.1); Total Bilirubin 0.7 mg/dL (0.2-1.3); Total Protein 6.9 g/dL (6.3-8.2)
[2021-08-14 12:09] LABS: Partial Thromboplastin Time 20.2 sec (22.0-30.0); Prothrombin Time 10.4 sec (9.0-12.0)
--- NOTE | 2021-08-14 12:21 | XR ---
EXAMINATION TYPE: XR chest 2V DATE OF EXAM: 08/14/2021 COMPARISON: Chest x-ray May 22, 2019 HISTORY: Chest pain. TECHNIQUE: Frontal and lateral views of the chest are obtained. FINDINGS: Improved inspiration current study. There is new left mid to lower lung focal opacity juana cent to left heart border just below EKG leads on frontal view likely within the lingula on lateral v iew. The cardiac silhouette size remains within normal limits. The osseous structures are intact. IMPRESSION: New lingular acute infiltrate and/or atelectasis.
[2021-08-14] MEDS: MAGNESIUM SULFATE-D5W PMX 1 GM in DEXTROSE/WATER 1 100ML.BAG IVPB SCH ×2 (12:28→14:03)
[2021-08-14] MEDS ORDERED: ACETAMINOPHEN TAB 325 MG TAB PO STA (13:04)
--- NOTE | 2021-08-14 13:04 | CT ---
EXAMINATION TYPE: CT chest angio for PE DATE OF EXAM: 08/14/2021 COMPARISON: Chest x-ray earlier today HISTORY: [place] CT DLP: 743 mGycm. Automated Exposure Control for Dose Reduction was Utilized. CONTRAST: CTA scan of the thorax is performed with IV Contrast, patient injected with 100 mL of Isovue 370, pul monary embolism protocol. MIP Images are created on CT scanner and reviewed. FINDINGS: LUNGS: Corresponding to x-ray there is focal 2.9 x 2.1 cm nodular consolidation and/or less likely no dule axial image 78 with surrounding groundglass opacity centered anterior superior aspect of the nitesh gula. Right lung is clear. No pleural effusion or pneumothorax seen bilaterally. MEDIASTINUM: There is satisfactory enhancement of the pulmonary artery and its branches, there is no CT evidence for pulmonary embolism. Satisfactory enhancement of the thoracic aorta without aneurysm or dissection. There are no greater than 1 cm hilar or mediastinal lymph nodes. No cardiomegaly or pericardial effusion is seen. OTHER: No additional significant abnormality is seen. IMPRESSION: No CT evidence for acute pulmonary embolism. Focal pneumonic consolidation in the lingula is confirmed. Underlying nodularity much less likely but not entirely excluded. Short-term x-ray and /or CT follow-up after treatment is advised.
[2021-08-14] MEDS ORDERED: cefTRIAXone IN SWFI 1,000 MG/10 ML SYRINGE IVP STA (13:14)
[2021-08-14] MEDS ORDERED: AZITHROMYCIN 500 MG in SODIUM CHLORIDE 0.9% 250 ML IVPB STA (13:14)
[2021-08-14] MEDS ORDERED: IBUPROFEN 600 MG TAB PO STA (14:12)
[2021-08-14 15:32] VITALS: BP 130/76; PULSE 78; TEMP 101
== END 2021-08-14 15:32 | disposition home or self-care (01) ==
LOC: EC 10:44
DX: R07.89 Other chest pain (principal); J18.9 Pneumonia, unspecified organism; E78.5 Hyperlipidemia, unspecified; I10 Essential (primary) hypertension; M19.90 Unspecified osteoarthritis, unspecified site; Z20.822 Contact with and (suspected) exposure to COVID-19; Z79.82 Long term (current) use of aspirin; Z86.73 Personal history of transient ischemic attack (TIA), and cerebral infarction without residual deficits; Z90.49 Acquired absence of other specified parts of digestive tract; Z90.710 Acquired absence of both cervix and uterus; Z87.891 Personal history of nicotine dependence
CPT/HCPCS: 99285; 96365; 96368; 96375; 36415; 93005; 85379; 83880; 80053; 83735; 84484; 85025; 85610; 85730; 87635; 71046; 71275; J0456; J0696; J3475; Q9967

== ENCOUNTER 2024-03-07 10:31 | Inpatient (IN) | payer MEDICARE, OTHER ==
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
[2024-03-07] MEDS: DEXAMETHASONE SOD PHOSPHATE 10 MG/ML 1 ML VIAL IVP SCH (11:43)
[2024-03-07 11:53] LABS: Basophils % (A) 0 %; Eosinophils # (A) 0.3 k/uL (0-0.7); Eosinophils % (A) 4 %; HCT 41.7 % (34.0-46.0); HGB 13.8 gm/dL (11.4-16.0); Hypochromasia Slight; Lymphocytes # (A) 1.1 k/uL (1.0-4.8); Lymphocytes % (A) 16 %; MCH 29.4 pg (25.0-35.0); MCHC 32.9 g/dL (31.0-37.0); MCV 89.1 fL (80.0-100.0); Mean Platelet Volume 7.8; Monocytes # (A) 0.5 k/uL (0-1.0); Monocytes % (A) 7 %; Neutrophils # (A) 4.9 k/uL (1.3-7.7); Neutrophils % (A) 70 %; Platelet Count 250 k/uL (150-450); RBC 4.68 m/uL (3.80-5.40); RDW 14.6 % (11.5-15.5)
--- NOTE | 2024-03-07 11:58 | XR ---
EXAMINATION TYPE: XR chest 2V DATE OF EXAM: 03/07/2024 COMPARISON: 08/14/2021 HISTORY: Chest pain TECHNIQUE: Frontal and lateral views of the chest are obtained. FINDINGS: There is no focal air space opacity, pleural effusion, or pneumothorax seen. The cardiac silhouette size is within normal limits. The osseous structures are intact. IMPRESSION: No acute cardiopulmonary process.
[2024-03-07] MEDS: ALBUTEROL HFA INHALER INHALATION STA (12:00)
[2024-03-07 12:02] LABS: Partial Thromboplastin Time 24.1 sec (22.0-30.0); Prothrombin Time 10.8 sec (10.0-12.5)
[2024-03-07 12:05] LABS: ALT 19 U/L (4-34); AST 27 U/L (14-36); African American GFR (CKD) 61 (>60 ml/min/1.73 sqM); Albumin 3.3 g/dL (3.5-5.0); Alkaline Phosphatase 102 U/L (38-126); Anion Gap 7 mmol/L; Blood Urea Nitrogen 16 mg/dL (7-17); Calcium 8.3 mg/dL (8.4-10.2); Carbon Dioxide 34 mmol/L (22-30); Chloride 93 mmol/L (98-107); Glucose 98 mg/dL (74-99); Magnesium 1.5 mg/dL (1.6-2.3); Non-African American GFR(CKD) 53 (>60 ml/min/1.73 sqM); Potassium 3.1 mmol/L (3.5-5.1); Sodium 134 mmol/L (137-145); Total Bilirubin 0.7 mg/dL (0.2-1.3); Total Protein 5.9 g/dL (6.3-8.2)
[2024-03-07] MEDS ORDERED: NALOXONE 0.4 MG/ML 1 ML VIAL IVP PRN (12:49)
[2024-03-07] MEDS ORDERED: ALBUTEROL HFA INHALER INHALATION PRN (12:50)
[2024-03-07] MEDS: MAGNESIUM SULFATE-D5W PMX 1 GM in DEXTROSE/WATER 1 100ML.BAG IVPB ONE (12:52)
[2024-03-07] MEDS: ASCORBIC ACID 500 MG TAB PO SCH (13:26)
[2024-03-07] MEDS: CHOLECALCIFEROL 125 MCG (5000 IU) TABLET PO SCH (13:26)
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
[2024-03-07] MEDS: ALBUTEROL HFA INHALER INHALATION SCH (16:37)
[2024-03-07] MEDS: methylPREDNISolone SOD SUCCI 125 MG/2 ML VIAL IV SCH (18:59)
[2024-03-07] MEDS: ZINC SULFATE 220 MG CAP PO SCH (18:59)
[2024-03-07] MEDS: ENOXAPARIN 40 MG/0.4 ML SYRINGE SQ SCH (18:59)
[2024-03-07] MEDS: SYMBICORT 160-4.5 MCG INHALER INHALATION SCH (20:45)
[2024-03-07] MEDS: FAMOTIDINE 20 MG TAB PO SCH (21:30)
--- NOTE | 2024-03-08 01:57 | HP ---
HISTORY AND PHYSICAL CHIEF COMPLAINT: Shortness of breath. HISTORY OF PRESENT ILLNESS: This is a 68-year-old woman with a past medical history of multiple medical problems, recently came back from a cruise which lasted for 10 days from [place]. Apparently on the 7th day of cruise, her became really sick and was diagnosed with COVID and was put on quarantine by the ship doctor. He got better, but subsequently after coming back home, the patient got sick with shortness of breath and cough, and the patient admitted for further evaluation and treatment. The patient was found to be COVID-19 positive, early pneumonia was suspected. The patient has taken the initial COVID vaccine. There is no history of any fever, rigors, or chills at this time. PAST MEDICAL HISTORY: Reviewed include CVA, hypertension, hyperlipidemia, rest of the history and rest of the chart is also reviewed. HOME MEDICATIONS: Reviewed include Synthroid, dose and rest of medications noted. ALLERGIES: None. FAMILY HISTORY: History of skin cancer. SOCIAL HISTORY: Previous history of smoking. REVIEW OF SYSTEMS: A 14-point review is negative except as mentioned. PHYSICAL EXAMINATION: VITAL SIGNS: Pulse 61, blood pressure 160/62, respirations 16. HEENT: Conjunctivae normal. NECK: No jugular venous distention. CARDIOVASCULAR: S1, S2. RESPIRATIONS: Diminished at the bases, bilateral scattered rhonchi and crackles. ABDOMEN: Soft. NERVOUS SYSTEM: Nonfocal. LABORATORY DATA: Sodium 130, potassium 3.1. ASSESSMENT: 1. Acute COVID-19 infection with acute early bilateral pneumonia with shortness of breath. 2. Hyponatremia. 3. Hypokalemia. 4. Hypertension. 5. CVA, TIA. 6. History of DJD. RECOMMENDATIONS AND DISCUSSION: This 68-year-old woman presented with multiple complex medical issues, we will monitor the patient closely. Continue the current medication, bronchodilators. We will consult Pulmonary as well as Infectious Disease for possible Remdesivir. Otherwise, I would also recommend D-dimer. If D-dimer is positive, I would strongly recommend CT angio. Lovenox and rest of medications will be ordered. See orders for details. Prognosis guarded. Further recommendations to follow. MMODL / IJN: [id number] /
[2024-03-08] MEDS: LEVOTHYROXINE 25 MCG TAB PO SCH (06:17)
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
[2024-03-08 08:49] LABS: HCT 40.3 % (37.2-46.3); HGB 13.1 g/dL (12.0-15.0); MCH 28.6 pg (27.0-32.0); MCHC 32.5 g/dL (32.0-37.0); Mean Platelet Volume 10.5 FL (9.5-12.2); NRBC Per 100 WBC 0 X 10*3/uL (0.00-0.01); Platelet Count 249 X 10*3/uL (140-440); RBC 4.58 X 10*6/uL (4.10-5.20); RDW 14.8 % (11.5-14.5); WBC 8.33 X 10*3/uL (4.50-10.00)
[2024-03-08] MEDS: ATORVASTATIN 40 MG TAB PO SCH (08:49)
[2024-03-08] MEDS: CHLORTHALIDONE 25 MG TAB PO SCH (08:49)
[2024-03-08] MEDS: atenoloL 50 MG TAB PO SCH (08:51)
[2024-03-08 09:22] LABS: ALT 20 U/L (8-44); AST 22 U/L (13-35); Albumin 3.4 g/dL (3.8-4.9); Albumin/Globulin Ratio 1.26 Ratio (1.60-3.17); Alkaline Phosphatase 116 U/L (41-126); Blood Urea Nitrogen 20.8 mg/dL (9.0-27.0); Calcium 8.4 mg/dL (8.7-10.3); Carbon Dioxide 24.4 mmol/L (21.6-31.8); Chloride 91 mmol/L (96-109); Globulin 2.7 g/dL (1.6-3.3); Glucose 244 mg/dL (70-110); Magnesium 1.7 mg/dL (1.5-2.4); Potassium 3.4 mmol/L (3.5-5.5); Sodium 131 mmol/L (135-145); Total Bilirubin 0.3 mg/dL (0.3-1.2); Total Protein 6.1 g/dL (6.2-8.2)
[2024-03-08 10:23] LABS: Basophils # (A) 0.02 X 10*3/uL (0.00-0.10); Basophils % (A) 0.2 %; Eosinophils # (A) 0 X 10*3/uL (0.04-0.35); Eosinophils % (A) 0 %; Lymphocytes # (A) 0.65 X 10*3/uL (0.90-5.00); Lymphocytes % (A) 7.8 %; Monocytes # (A) 0.09 X 10*3/uL (0.20-1.00); Monocytes % (A) 1.1 %; Neutrophils # (A) 7.55 X 10*3/uL (1.80-7.70); Neutrophils % (A) 90.7 %; RBC Morphology Normal (Normal)
[2024-03-08] MEDS: MULTIVITAMINS, THERA 1 EACH TAB PO SCH (11:17)
--- NOTE | 2024-03-08 12:14 | P.PN ---
Subjective Progress Note Date: 03/08/24 68-year-old female who tested positive for coronavirus, on February 25. More recently, over the last few days, the patient states that she has been having significant cough, tightness in her chest, and chest pain when she coughs. The patient has not sought any help for this condition, but it got so bad, that she came into the emergency room, on March 07, to be evaluated. The patient has had difficulty breathing, coughing, chest tightness, and chest pain. The patient was vaccinated against coronavirus, but did not achieve the booster vaccines. The patient has a history of hypertension, hyperlipidemia, and hypothyroidism. The patient also has a prior history of either CVA or TIA, and degenerative j oint disease. She is a former smoker. Current labs include a completely normal CBC. Coagulation studies are also normal. Sodium 134, potassium 3.1, chloride 93, CO2 34, BUN 16, creatinine 1.07. Magnesium is 1.5. Calcium is 8.3. She did test positive for coronavirus again. Albumin is 3.3. Chest x-ray shows no acute pulmonary process. The patient was seen today March 08, 2024 in follow-up on the regular medical floor. She is currently sitting up at the bedside. Awake and alert in no acute distress. Maintaining O2 saturations in the 90s on 2 L/min per nasal cannula. He has been afebrile. Hemodynamically stable. Sputum culture reveals no growth. White count 8.3. Hemoglobin 13.1. Platelets 249. D-dimer 0.56. Sodium 131. Potassium 3.4. Bicarb 24. BUN 21. Creatinine 1.0. Glucose 244. She remains on albuterol HFA, Symbicort, Solu-Medrol. Antibiotics in the form of ceftriaxone. Lovenox for DVT prophylaxis. Procalcitonin was 0.53. Objective - Vital Signs Vital signs: Vital Signs Temp 98.1 F 03/08/24 07:13 Pulse 59 L 03/08/24 07:13 Resp 18 03/08/24 07:13 BP 112/61 03/08/24 07:13 Pulse Ox 92 L 03/08/24 07:13 FiO2 Intake & Output 03/07/24 03/08/24 03/08/24 18:59 06:59 18:59 Weight 118.841 kg Other: # Voids 1 3 - Exam GENERAL EXAM: Alert, pleasant 68-year-old female, on 2 L, comfortable in no apparent distress. HEAD: Normocephalic. EYES: Normal reaction of pupils, equal size. NOSE: Clear with pink turbinates. THROAT: No erythema or exudates. NECK: No masses, no JVD. CHEST: No chest wall deformity. LUNGS: Equal air entry with no crackles, wheeze, rhonchi or dullness. CVS: S1 and S2 normal with no audible murmur, regular rhythm. ABDOMEN: No hepatosplenomegaly, normal bowel sounds, no guarding or rigidity. SPINE: No scoliosis or deformity SKIN: No rashes CENTRAL NERVOUS SYSTEM: No focal deficits, tone is normal in all 4 extremities. EXTREMITIES: There is no peripheral edema. No clubbing, no cyanosis. Peripheral pulses are intact. - Labs CBC & Chem 7: 03/08/24 03:49 03/08/24 03:49 Labs: Abnormal Lab Results - Last 24 Hours (Table) 03/07/24 03/07/24 03/07/24 Range/Units 11:40 11:40 11:49 RDW (11.5-14.5) % Lymphocytes # (0.90-5.00) X 10*3/uL Monocytes # (0.20-1.00) X 10*3/uL Eosinophils # (0.04-0.35) X 10*3/uL Sodium 134 L (137-145) mmol/L Potassium 3.1 L (3.5-5.1) mmol/L Chloride 93 L (98-107) mmol/L Carbon Dioxide 34 H (22-30) mmol/L Anion Gap (4.00-12.00) mmol/L Creatinine 1.07 H (0.52-1.04) mg/dL BUN/Creatinine Ratio (12.00-20.00) Ratio Glucose (70-110) mg/dL Calcium 8.3 L (8.4-10.2) mg/dL Magnesium 1.5 L (1.6-2.3) mg/dL Total Protein 5.9 L (6.3-8.2) g/dL Albumin 3.3 L (3.5-5.0) g/dL Albumin/Globulin Ratio (1.60-3.17) Ratio Procalcitonin 0.53 H (0.02-0.50) ng/mL SARS-CoV-2 (PCR) Detected A (Not Detectd) 03/08/24 03/08/24 Range/Units 03:49 03:49 RDW 14.8 H (11.5-14.5) % Lymphocytes # 0.65 L (0.90-5.00) X 10*3/uL Monocytes # 0.09 L (0.20-1.00) X 10*3/uL Eosinophils # 0 L (0.04-0.35) X 10*3/uL Sodium 131 L (137-145) mmol/L Potassium 3.4 L (3.5-5.1) mmol/L Chloride 91 L (98-107) mmol/L Carbon Dioxide (22-30) mmol/L Anion Gap 15.60 H (4.00-12.00) mmol/L Creatinine (0.52-1.04) mg/dL BUN/Creatinine Ratio 20.80 H (12.00-20.00) Ratio Glucose 244 H (70-110) mg/dL Calcium 8.4 L (8.4-10.2) mg/dL Magnesium (1.6-2.3) mg/dL Total Protein 6.1 L (6.3-8.2) g/dL Albumin 3.4 L (3.5-5.0) g/dL Albumin/Globulin Ratio 1.26 L (1.60-3.17) Ratio Procalcitonin (0.02-0.50) ng/mL SARS-CoV-2 (PCR) (Not Detectd) Microbiology - Last 24 Hours (Table) 03/07/24 19:18 Gram Stain - Preliminary Sputum Assessment and Plan Assessment: Reactive bronchospasm and bronchial inflammation, secondary to recent coronavirus infection. History of hypertension. History of hyperlipidemia. History of osteoarthritis. History of CVA/TIA. Previous history of tobacco use. Plan: The patient was seen and evaluated Labs and medications reviewed Stable for discharge from the pulmonary standpoint Continue Symbicort, HFA Complete a prednisone taper Complete a course of antibiotics Continue vitamin supplements This patient was seen independently by the pulmonary nurse practitioner addressing pulmonary issues I have personally seen and examined the patient, performed the documentation and the assessment and plan as written. Number of minutes spent on the visit: 25.
--- NOTE | 2024-03-08 16:26 | CT ---
EXAMINATION TYPE: CT chest wo con DATE OF EXAM: 03/08/2024 COMPARISON: CTA chest 08/14/2021 HISTORY: pneumonia?? COVID + CT DLP: 567.3 mGycm. Automated Exposure Control for Dose Reduction was Utilized. TECHNIQUE: CT scan of the thorax is performed without IV contrast. FINDINGS: There are a few small scattered subpleural parenchymal groundglass opacities in both lungs consistent with an acute infectious process possibly covid. There is no dense airspace consolidation. There is no abnormal interstitial density. There is no suspicious lung mass or nodule. There is no pleural effusion or pneumothorax. The great vessels the chest are normal and there is no mediastinal, hilar or axillary adenopathy. Limited scanning through the upper abdomen is no gross abnormality. There are no focal osseous lesions. IMPRESSION: Small scattered bilaterally subpleural parenchymal groundglass opacities. This nonspecific finding bu t is likely an acute infectious process. The findings are typical of Covid
--- NOTE | 2024-03-08 22:59 | PN ---
PROGRESS NOTE DATE OF SERVICE: 03/08/2024 SUBJECTIVE: This is a 68-year-old woman, who was admitted with acute COVID-19 infection, is still having shortness of breath. The D-dimer is normal. COVID-19 is positive. The patient is on empiric antibiotics. Procalcitonin is elevated at 0.53. PAST MEDICAL HISTORY: Reviewed. REVIEW OF SYSTEMS: A 14-point review is negative except as mentioned earlier. CURRENT MEDICATIONS: Reviewed. PHYSICAL EXAMINATION: VITAL SIGNS: Pulse is 59, blood pressure 112/64, respirations 18. HEENT: Conjunctivae normal. CARDIOVASCULAR: S1, S2. RESPIRATIONS: A few scattered rhonchi. ABDOMEN: Soft. NERVOUS SYSTEM: Nonfocal. LABORATORY DATA: Reviewed. Sodium 130, potassium 3.4. ASSESSMENT: 1. Acute COVID-19 infection with acute bilateral early pneumonia with shortness of breath. 2. Hyponatremia. 3. Hypokalemia. 4. Hypertension. 5. Cerebrovascular accident, transient ischemic attack. 7. History of degenerative joint disease. RECOMMENDATIONS AND DISCUSSION: Recommend to continue current management. Continue symptomatic treatment. I would recommend CT scan of the chest and continue the antibiotics. steroids have been initiated. Guarded prognosis. Further recommendations to follow. See orders for further details. Lovenox is also continued. MMODL / IJN: [id number] / [facility]
[2024-03-09 08:45] LABS: Basophils # (A) 0.03 X 10*3/uL (0.00-0.10); Basophils % (A) 0.2 %; Eosinophils # (A) 0 X 10*3/uL (0.04-0.35); Eosinophils % (A) 0 %; HCT 38.2 % (37.2-46.3); HGB 12.4 g/dL (12.0-15.0); Lymphocytes # (A) 0.72 X 10*3/uL (0.90-5.00); Lymphocytes % (A) 3.6 %; MCH 28.6 pg (27.0-32.0); MCHC 32.5 g/dL (32.0-37.0); Mean Platelet Volume 10.5 FL (9.5-12.2); Monocytes # (A) 0.49 X 10*3/uL (0.20-1.00); Monocytes % (A) 2.5 %; NRBC Per 100 WBC 0 X 10*3/uL (0.00-0.01); Neutrophils # (A) 18.45 X 10*3/uL (1.80-7.70); Neutrophils % (A) 93.1 %; Platelet Count 285 X 10*3/uL (140-440); RBC 4.34 X 10*6/uL (4.10-5.20); RDW 14.7 % (11.5-14.5); WBC 19.81 X 10*3/uL (4.50-10.00)
[2024-03-09 09:03] LABS: BUN/Creat Ratio 23.09 Ratio (12.00-20.00); Blood Urea Nitrogen 25.4 mg/dL (9.0-27.0); Calcium 8.6 mg/dL (8.7-10.3); Carbon Dioxide 24.6 mmol/L (21.6-31.8); Chloride 91 mmol/L (96-109); Glucose 270 mg/dL (70-110); Potassium 3.6 mmol/L (3.5-5.5); Sodium 132 mmol/L (135-145)
--- NOTE | 2024-03-09 13:08 | P.PN ---
Subjective Progress Note Date: 03/09/24 68-year-old female who tested positive for coronavirus, on February 25. More recently, over the last few days, the patient states that she has been having significant cough, tightness in her chest, and chest pain when she coughs. The patient has not sought any help for this condition, but it got so bad, that she came into the emergency room, on March 07, to be evaluated. The patient has had difficulty breathing, coughing, chest tightness, and chest pain. The patient was vaccinated against coronavirus, but did not achieve the booster vaccines. The patient has a history of hypertension, hyperlipidemia, and hypothyroidism. The patient also has a prior history of either CVA or TIA, and degenerative j oint disease. She is a former smoker. Current labs include a completely normal CBC. Coagulation studies are also normal. Sodium 134, potassium 3.1, chloride 93, CO2 34, BUN 16, creatinine 1.07. Magnesium is 1.5. Calcium is 8.3. She did test positive for coronavirus again. Albumin is 3.3. Chest x-ray shows no acute pulmonary process. The patient was seen today March 08, 2024 in follow-up on the regular medical floor. She is currently sitting up at the bedside. Awake and alert in no acute distress. Maintaining O2 saturations in the 90s on 2 L/min per nasal cannula. He has been afebrile. Hemodynamically stable. Sputum culture reveals no growth. White count 8.3. Hemoglobin 13.1. Platelets 249. D-dimer 0.56. Sodium 131. Potassium 3.4. Bicarb 24. BUN 21. Creatinine 1.0. Glucose 244. She remains on albuterol HFA, Symbicort, Solu-Medrol. Antibiotics in the form of ceftriaxone. Lovenox for DVT prophylaxis. Procalcitonin was 0.53. The patient is seen today March 09, 2024 in follow-up on the regular medical floor. She is awake and alert in no acute distress. Resting comfortably in bed. Maintaining O2 saturations in the 90s on 2 L/min per nasal cannula. She is afebrile. Hemodynamically stable. CT scan of the chest revealed small scattered bilateral subpleural parenchymal groundglass opacities. Consistent with COVID infection. Sputum culture revealed no growth. White count 19.8. Hemoglobin 12.4. Platelets 285. Sodium 132. Potassium 3.6. Bicarb 25. BUN 25. Creatinine 1.1. Glucose 270. She remains on albuterol, Symbicort, Solu- Medrol. Antibiotics in the form of ceftriaxone Objective - Vital Signs Vital signs: Vital Signs Temp 98.1 F 03/09/24 07:16 Pulse 64 03/09/24 07:16 Resp 17 03/09/24 07:16 BP 122/69 03/09/24 07:16 Pulse Ox 94 L 03/09/24 07:16 FiO2 Intake & Output 03/08/24 03/09/24 03/09/24 18:59 06:59 18:59 Other: Voiding Method Toilet # Voids 3 2 - Exam GENERAL EXAM: Alert, 68-year-old female, on 2 L, resting comfortably in bed, distress. EYES: Normal reaction of pupils, equal size. NOSE: Clear with pink turbinates. THROAT: No erythema or exudates. NECK: No masses, no JVD. CHEST: No chest wall deformity. LUNGS: Equal air entry with faint crackles in the bilateral bases. CVS: S1 and S2 normal with no audible murmur, regular rhythm. ABDOMEN: No hepatosplenomegaly, normal bowel sounds, no guarding or rigidity. SPINE: No scoliosis or deformity SKIN: No rashes CENTRAL NERVOUS SYSTEM: No focal deficits, tone is normal in all 4 extremities. EXTREMITIES: There is no peripheral edema. No clubbing, no cyanosis. Peripheral pulses are intact. - Labs CBC & Chem 7: 03/09/24 03:59 03/09/24 03:59 Labs: Abnormal Lab Results - Last 24 Hours (Table) 03/09/24 03/09/24 Range/Units 03:59 03:59 WBC 19.81 H (4.50-10.00) X 10*3/uL RDW 14.7 H (11.5-14.5) % Immature Gran # 0.12 H (0.00-0.04) X 10*3/uL Neutrophils # 18.45 H (1.80-7.70) X 10*3/uL Lymphocytes # 0.72 L (0.90-5.00) X 10*3/uL Eosinophils # 0 L (0.04-0.35) X 10*3/uL Sodium 132 L (135-145) mmol/L Chloride 91 L (96-109) mmol/L Anion Gap 16.40 H (4.00-12.00) mmol/L Est GFR (CKD-EPI) 54 L (>=60) BUN/Creatinine Ratio 23.09 H (12.00-20.00) Ratio Glucose 270 H (70-110) mg/dL Calcium 8.6 L (8.7-10.3) mg/dL Microbiology - Last 24 Hours (Table) 03/07/24 19:18 Gram Stain - Preliminary Sputum Sputum Culture - Preliminary Assessment and Plan Assessment: Reactive bronchospasm and bronchial inflammation, secondary to recent coronavirus infection. History of hypertension. History of hyperlipidemia. History of osteoarthritis. History of CVA/TIA. Previous history of tobacco use. Plan: The patient was seen and evaluated Labs and medications reviewed CT scan of the chest reviewed Cleared for discharge Continue Symbicort, HFA Complete a Medrol dose pack Complete a course of antibiotics I have personally seen and examined the patient, performed the documentation and the assessment and plan as written. Number of minutes spent on the visit: 10.
--- NOTE | 2024-03-09 14:56 | P.PN ---
Subjective Progress Note Date: 03/08/24 Principal diagnosis: Reason for follow-up is pneumonia Patient is a 68-year-old female with a past medical history significant for hypertension hyperlipidemia osteoarthritis TIA TIA apparently was diagnosed with COVID-19 on February 26, 2024 now presented to hospital with increased shortness of breath and cough and with the hospital concerning for possible pneumonia. On today's evaluation that is 03/08/2024, the patient continues to be afebrile, the patient is on room air and breathing comfortably, the Pt denies having any chest pain cough is decreased in intensity, the patient denies having any abdominal pain no vomiting or any diarrhea. Patient white count is 8.33, creatinine 1.0 procalcitonin 0.53 Objective - Vital Signs Vital signs: Vital Signs Temp 98.1 F 03/08/24 07:13 Pulse 59 L 03/08/24 07:13 Resp 18 03/08/24 07:13 BP 112/61 03/08/24 07:13 Pulse Ox 92 L 03/08/24 07:13 FiO2 Intake & Output 03/07/24 03/08/24 03/08/24 18:59 06:59 18:59 Weight 118.841 kg Other: # Voids 1 3 - Exam GENERAL DESCRIPTION: An elderly female lying in bed in no distress RESPIRATORY SYSTEM: Unlabored breathing , decreased breath sounds at bases HEART: S1 S2 regular rate and rhythm , ABDOMEN: Soft , no tenderness EXTREMITIES: No edema feet - Labs CBC & Chem 7: 03/09/24 03:59 03/09/24 03:59 Labs: Abnormal Lab Results - Last 24 Hours (Table) 03/07/24 03/07/24 03/07/24 Range/Units 11:40 11:40 11:49 RDW (11.5-14.5) % Lymphocytes # (0.90-5.00) X 10*3/uL Monocytes # (0.20-1.00) X 10*3/uL Eosinophils # (0.04-0.35) X 10*3/uL Sodium 134 L (137-145) mmol/L Potassium 3.1 L (3.5-5.1) mmol/L Chloride 93 L (98-107) mmol/L Carbon Dioxide 34 H (22-30) mmol/L Anion Gap (4.00-12.00) mmol/L Creatinine 1.07 H (0.52-1.04) mg/dL BUN/Creatinine Ratio (12.00-20.00) Ratio Glucose (70-110) mg/dL Calcium 8.3 L (8.4-10.2) mg/dL Magnesium 1.5 L (1.6-2.3) mg/dL Total Protein 5.9 L (6.3-8.2) g/dL Albumin 3.3 L (3.5-5.0) g/dL Albumin/Globulin Ratio (1.60-3.17) Ratio Procalcitonin 0.53 H (0.02-0.50) ng/mL SARS-CoV-2 (PCR) Detected A (Not Detectd) 03/08/24 03/08/24 Range/Units 03:49 03:49 RDW 14.8 H (11.5-14.5) % Lymphocytes # 0.65 L (0.90-5.00) X 10*3/uL Monocytes # 0.09 L (0.20-1.00) X 10*3/uL Eosinophils # 0 L (0.04-0.35) X 10*3/uL Sodium 131 L (137-145) mmol/L Potassium 3.4 L (3.5-5.1) mmol/L Chloride 91 L (98-107) mmol/L Carbon Dioxide (22-30) mmol/L Anion Gap 15.60 H (4.00-12.00) mmol/L Creatinine (0.52-1.04) mg/dL BUN/Creatinine Ratio 20.80 H (12.00-20.00) Ratio Glucose 244 H (70-110) mg/dL Calcium 8.4 L (8.4-10.2) mg/dL Magnesium (1.6-2.3) mg/dL Total Protein 6.1 L (6.3-8.2) g/dL Albumin 3.4 L (3.5-5.0) g/dL Albumin/Globulin Ratio 1.26 L (1.60-3.17) Ratio Procalcitonin (0.02-0.50) ng/mL SARS-CoV-2 (PCR) (Not Detectd) Microbiology - Last 24 Hours (Table) 03/07/24 19:18 Gram Stain - Preliminary Sputum Assessment and Plan (1) COVID-19 Current Visit: Yes Status: Acute Code(s): U07.1 - COVID-19 SNOMED Code(s): 884927641 (2) Elevated procalcitonin Current Visit: Yes Status: Acute Code(s): R79.89 - OTHER SPECIFIED ABNORMAL FINDINGS OF BLOOD CHEMISTRY SNOMED Code(s): 910921365 (3) Pneumonia Current Visit: No Status: Acute Code(s): J18.9 - PNEUMONIA, UNSPECIFIED ORGANISM SNOMED Code(s): 735265109 Plan: 1patient presented to hospital with increasing shortness of breath and cough has been constant sputum patient has been diagnosed with COVID-19 about 10 days ago and symptom has been going on slightly longer than that currently out of the therapeutic window for remdesivir chest x-ray was also negative for any acute infiltrate however the patient is bringing up some purulent sputum underlying secondary bacterial pneumonia not entirely excluded 2-sputum cultures currently pending patient did have elevated procalcitonin Rocephin has been added while waiting for the culture to finalize Dictation was produced using [employer] dictation software. please excuse any grammatical, word or spelling errors. Time with Patient: Less than 30
--- NOTE | 2024-03-09 14:57 | P.PN ---
Subjective Progress Note Date: 03/09/24 Principal diagnosis: Reason for follow-up is pneumonia Patient is a 68-year-old female with a past medical history significant for hypertension hyperlipidemia osteoarthritis TIA TIA apparently was diagnosed with COVID-19 on February 26, 2024 now presented to hospital with increased shortness of breath and cough and with the hospital concerning for possible pneumonia. On today's evaluation that is 03/09/2024, Patient is afebrile patient is currently on room air and denies having any shortness of breath, the patient denies any chest pain patient cough decreased intensity mostly dry in nature, the patient denies any nausea vomiting did not have any abdominal pain and no diarrhea Patient white count is up to 19.81, creatinine is 1.1 sputum cultures pending Objective - Vital Signs Vital signs: Vital Signs Temp 98.4 F 03/09/24 13:55 Pulse 61 03/09/24 13:55 Resp 17 03/09/24 13:55 BP 111/65 03/09/24 13:55 Pulse Ox 94 L 03/09/24 13:55 FiO2 Intake & Output 03/08/24 03/09/24 03/09/24 18:59 06:59 18:59 Other: Voiding Method Toilet # Voids 3 2 - Exam GENERAL DESCRIPTION: An elderly female lying in bed in no distress RESPIRATORY SYSTEM: Unlabored breathing , decreased breath sounds at bases HEART: S1 S2 regular rate and rhythm , ABDOMEN: Soft , no tenderness EXTREMITIES: No edema feet - Labs CBC & Chem 7: 03/09/24 03:59 03/09/24 03:59 Labs: Abnormal Lab Results - Last 24 Hours (Table) 03/09/24 03/09/24 Range/Units 03:59 03:59 WBC 19.81 H (4.50-10.00) X 10*3/uL RDW 14.7 H (11.5-14.5) % Immature Gran # 0.12 H (0.00-0.04) X 10*3/uL Neutrophils # 18.45 H (1.80-7.70) X 10*3/uL Lymphocytes # 0.72 L (0.90-5.00) X 10*3/uL Eosinophils # 0 L (0.04-0.35) X 10*3/uL Sodium 132 L (135-145) mmol/L Chloride 91 L (96-109) mmol/L Anion Gap 16.40 H (4.00-12.00) mmol/L Est GFR (CKD-EPI) 54 L (>=60) BUN/Creatinine Ratio 23.09 H (12.00-20.00) Ratio Glucose 270 H (70-110) mg/dL Calcium 8.6 L (8.7-10.3) mg/dL Microbiology - Last 24 Hours (Table) 03/07/24 19:18 Gram Stain - Preliminary Sputum Sputum Culture - Preliminary Assessment and Plan (1) COVID-19 Current Visit: Yes Status: Acute Code(s): U07.1 - COVID-19 SNOMED Code(s): 402320394 (2) Elevated procalcitonin Current Visit: Yes Status: Acute Code(s): R79.89 - OTHER SPECIFIED ABNORMAL FINDINGS OF BLOOD CHEMISTRY SNOMED Code(s): 731538917 (3) Pneumonia Current Visit: No Status: Acute Code(s): J18.9 - PNEUMONIA, UNSPECIFIED ORGANISM SNOMED Code(s): 414905474 (4) Leukocytosis Current Visit: Yes Status: Acute Code(s): D72.829 - ELEVATED WHITE BLOOD CELL COUNT, UNSPECIFIED SNOMED Code(s): 425306707 Plan: 1patient presented to hospital with increasing shortness of breath and cough has been constant sputum patient has been diagnosed with COVID-19 about 10 days ago and symptom has been going on slightly longer than that currently out of the therapeutic window for remdesivir chest x-ray was also negative for any acute infiltrate however the patient is bringing up some purulent sputum underlying secondary bacterial pneumonia not entirely excluded 2-sputum cultures currently pending patient did have elevated procalcitonin 3-leukocytosis more likely steroid related we will monitor closely 4-patient to continue with Rocephin while waiting for the culture to finalize Dictation was produced using [employer] dictation software. please excuse any grammatical, word or spelling errors. Time with Patient: Less than 30
--- NOTE | 2024-03-09 20:32 | PN ---
PROGRESS NOTE DATE OF SERVICE: 03/09/2024 SUBJECTIVE: This is a 68-year-old woman, who was admitted with acute COVID-19 infection, shortness of breath and multiple other medical issues, being closely monitored. A CT scan of the chest showed small scattered ground-glass opacity indicating mild pneumonia. No chest pain. No palpitation. OBJECTIVE: VITAL SIGNS: Pulse 64, blood pressure 120/60, respirations 17. CHEST: Bilateral scattered rhonchi and crackles. ABDOMEN: Soft. NERVOUS SYSTEM: Nonfocal. LABORATORY DATA: WBC 19.81. Rest of the labs are noted. ASSESSMENT: 1. Acute COVID-19 infection with acute bilateral early pneumonia with shortness of breath. 2. Hyponatremia. 3. Hypokalemia. 4. Hypertension. 5. Cerebrovascular accident, transient ischemic attack history. 6. History of degenerative joint disease. RECOMMENDATIONS: Recommended to continue current medications and continue symptomatic treatment. Continue with steroids. Continue with empiric antibiotics. Closely follow with Pulmonary and Infectious Disease. White count is elevated possibly secondary to steroids. Repeat labs in the morning. Possible discharge in the next 24 hours. MMODL / IJN: [id number] /
[2024-03-10 07:28] VITALS: BP 116/66; PULSE 53; RESP 14; TEMP 98.5
[2024-03-10 07:39] LABS: Basophils % (A) 0 %; Eosinophils % (A) 0 %; HCT 37.7 % (34.0-46.0); HGB 12.8 gm/dL (11.4-16.0); Lymphocytes # (A) 1.1 k/uL (1.0-4.8); Lymphocytes % (A) 7 %; MCH 29.5 pg (25.0-35.0); MCHC 33.8 g/dL (31.0-37.0); MCV 87.1 fL (80.0-100.0); Mean Platelet Volume 9.1; Monocytes # (A) 1.4 k/uL (0-1.0); Monocytes % (A) 9 %; Neutrophils # (A) 13.1 k/uL (1.3-7.7); Neutrophils % (A) 82 %; Platelet Count 298 k/uL (150-450); RBC 4.33 m/uL (3.80-5.40); RDW 14.5 % (11.5-15.5)
[2024-03-10 08:00] LABS: African American GFR (CKD) >90 (>60 ml/min/1.73 sqM); Anion Gap 8 mmol/L; Blood Urea Nitrogen 36 mg/dL (7-17); Calcium 8.6 mg/dL (8.4-10.2); Carbon Dioxide 26 mmol/L (22-30); Chloride 96 mmol/L (98-107); Glucose 122 mg/dL (74-99); Non-African American GFR(CKD) 80 (>60 ml/min/1.73 sqM); Sodium 130 mmol/L (137-145)
[2024-03-10 08:08] LABS: Potassium 3.5 mmol/L (3.5-5.1)
[2024-03-10] MEDS: methylPREDNISolone 4 MG TAB TAPER PO SCH (08:27)
--- NOTE | 2024-03-10 11:22 | P.PN ---
Subjective Progress Note Date: 03/10/24 68-year-old female who tested positive for coronavirus, on February 25. More recently, over the last few days, the patient states that she has been having significant cough, tightness in her chest, and chest pain when she coughs. The patient has not sought any help for this condition, but it got so bad, that she came into the emergency room, on March 07, to be evaluated. The patient has had difficulty breathing, coughing, chest tightness, and chest pain. The patient was vaccinated against coronavirus, but did not achieve the booster vaccines. The patient has a history of hypertension, hyperlipidemia, and hypothyroidism. The patient also has a prior history of either CVA or TIA, and degenerative j oint disease. She is a former smoker. Current labs include a completely normal CBC. Coagulation studies are also normal. Sodium 134, potassium 3.1, chloride 93, CO2 34, BUN 16, creatinine 1.07. Magnesium is 1.5. Calcium is 8.3. She did test positive for coronavirus again. Albumin is 3.3. Chest x-ray shows no acute pulmonary process. The patient was seen today March 08, 2024 in follow-up on the regular medical floor. She is currently sitting up at the bedside. Awake and alert in no acute distress. Maintaining O2 saturations in the 90s on 2 L/min per nasal cannula. He has been afebrile. Hemodynamically stable. Sputum culture reveals no growth. White count 8.3. Hemoglobin 13.1. Platelets 249. D-dimer 0.56. Sodium 131. Potassium 3.4. Bicarb 24. BUN 21. Creatinine 1.0. Glucose 244. She remains on albuterol HFA, Symbicort, Solu-Medrol. Antibiotics in the form of ceftriaxone. Lovenox for DVT prophylaxis. Procalcitonin was 0.53. The patient is seen today March 09, 2024 in follow-up on the regular medical floor. She is awake and alert in no acute distress. Resting comfortably in bed. Maintaining O2 saturations in the 90s on 2 L/min per nasal cannula. She is afebrile. Hemodynamically stable. CT scan of the chest revealed small scattered bilateral subpleural parenchymal groundglass opacities. Consistent with COVID infection. Sputum culture revealed no growth. White count 19.8. Hemoglobin 12.4. Platelets 285. Sodium 132. Potassium 3.6. Bicarb 25. BUN 25. Creatinine 1.1. Glucose 270. She remains on albuterol, Symbicort, Solu- Medrol. Antibiotics in the form of ceftriaxone The patient is seen today March 10, 2024 in follow-up on the regular medical floor. She is currently resting in bed. Awake and alert in no acute distress. Maintaining good O2 saturations in the 90s on room air. She is feeling back to her baseline. Sputum culture revealed no growth. White count 16.0. Hemoglobin 12.8. Platelets 298. Sodium 130. Potassium 3.5. Bicarb 26. BUN 36. Creatinine 0.76. Glucose 122. Already on albuterol along with a Medrol Do [place]. Antibiotics in the form of ceftriaxone. Lovenox for DVT prophylaxis Objective - Vital Signs Vital signs: Vital Signs Temp 98.5 F 03/10/24 07:21 Pulse 53 L 03/10/24 07:21 Resp 14 03/10/24 07:21 BP 116/66 03/10/24 07:21 Pulse Ox 94 L 03/10/24 09:06 FiO2 Intake & Output 03/09/24 03/10/24 03/10/24 18:59 06:59 18:59 Other: Voiding Method Toilet Toilet # Voids 3 3 - Exam GENERAL EXAM: Alert, pleasant 68-year-old female, on room air, resting comfortably in bed, distress. EYES: Normal reaction of pupils, equal size. NOSE: Clear with pink turbinates. THROAT: No erythema or exudates. NECK: No masses, no JVD. CHEST: No chest wall deformity. LUNGS: Equal air entry with no crackles, wheeze or rhonchi. CVS: S1 and S2 normal with no audible murmur, regular rhythm. ABDOMEN: No hepatosplenomegaly, normal bowel sounds, no guarding or rigidity. SPINE: No scoliosis or deformity SKIN: No rashes CENTRAL NERVOUS SYSTEM: No focal deficits, tone is normal in all 4 extremities. EXTREMITIES: There is no peripheral edema. No clubbing, no cyanosis. Peripheral pulses are intact. - Labs CBC & Chem 7: 03/10/24 06:11 03/10/24 06:11 Labs: Abnormal Lab Results - Last 24 Hours (Table) 03/10/24 03/10/24 Range/Units 06:11 06:11 WBC 16.0 H (3.8-10.6) k/uL Neutrophils # 13.1 H (1.3-7.7) k/uL Monocytes # 1.4 H (0-1.0) k/uL Sodium 130 L (137-145) mmol/L Chloride 96 L (98-107) mmol/L BUN 36 H (7-17) mg/dL Glucose 122 H (74-99) mg/dL Microbiology - Last 24 Hours (Table) 03/07/24 19:18 Gram Stain - Final Sputum Sputum Culture - Final Assessment and Plan Assessment: Reactive bronchospasm and bronchial inflammation, secondary to recent coronavirus infection Acute hypoxic respiratory failure secondary to above, recovered and on room air History of hypertension History of hyperlipidemia History of osteoarthritis History of CVA/TIA Previous history of tobacco use Plan: The patient was seen and evaluated Labs and medications reviewed Stable and on room air Cleared for discharge Continue Symbicort, albuterol HFA Complete a Medrol dose pack This patient was seen independently by the pulmonary nurse practitioner addressing pulmonary issues I have personally seen and examined the patient, performed the documentation and the assessment and plan as written. Number of minutes spent on the visit: 24.
--- NOTE | 2024-03-11 14:34 | P.PN ---
Subjective Progress Note Date: 03/10/24 Principal diagnosis: Reason for follow-up is pneumonia Patient is a 68-year-old female with a past medical history significant for hypertension hyperlipidemia osteoarthritis TIA TIA apparently was diagnosed with COVID-19 on February 26, 2024 now presented to hospital with increased shortness of breath and cough and with the hospital concerning for possible pneumonia. On today's evaluation that is 03/10/2024, patient has been afebrile, patient is breathing comfortably and is currently on room air, patient Cough is decreased in intensity and remains to be dry in nature, no chest pain shortness of breath, patient denies nausea vomiting or diarrhea and no abdominal pain, mention feeling better wants to go home. Patient white count is down to 16,000, creatinine 0.76 sputum has been negative Objective - Vital Signs Vital signs: Vital Signs Temp 98.5 F 03/10/24 07:21 Pulse 53 L 03/10/24 07:21 Resp 14 03/10/24 07:21 BP 116/66 03/10/24 07:21 Pulse Ox 94 L 03/10/24 09:06 FiO2 Intake & Output 03/09/24 03/10/24 03/10/24 18:59 06:59 18:59 Other: Voiding Method Toilet Toilet # Voids 3 3 - Exam GENERAL DESCRIPTION: An elderly female lying in bed in no distress RESPIRATORY SYSTEM: Unlabored breathing , decreased breath sounds at bases HEART: S1 S2 regular rate and rhythm , ABDOMEN: Soft , no tenderness EXTREMITIES: No edema feet - Labs CBC & Chem 7: 03/10/24 06:11 03/10/24 06:11 Labs: Abnormal Lab Results - Last 24 Hours (Table) 03/10/24 03/10/24 Range/Units 06:11 06:11 WBC 16.0 H (3.8-10.6) k/uL Neutrophils # 13.1 H (1.3-7.7) k/uL Monocytes # 1.4 H (0-1.0) k/uL Sodium 130 L (137-145) mmol/L Chloride 96 L (98-107) mmol/L BUN 36 H (7-17) mg/dL Glucose 122 H (74-99) mg/dL Microbiology - Last 24 Hours (Table) 03/07/24 19:18 Gram Stain - Final Sputum Sputum Culture - Final Assessment and Plan (1) COVID-19 Status: Acute Code(s): U07.1 - COVID-19 SNOMED Code(s): 605511637 (2) Elevated procalcitonin Status: Acute Code(s): R79.89 - OTHER SPECIFIED ABNORMAL FINDINGS OF BLOOD CHEMISTRY SNOMED Code(s): 794470147 (3) Pneumonia Status: Acute Code(s): J18.9 - PNEUMONIA, UNSPECIFIED ORGANISM SNOMED Code(s): 334677049 (4) Leukocytosis Status: Acute Code(s): D72.829 - ELEVATED WHITE BLOOD CELL COUNT, UNSPECIFIED SNOMED Code(s): 732378623 Plan: 1patient presented to hospital with increasing shortness of breath and cough has been constant sputum patient has been diagnosed with COVID-19 about 10 days ago and symptom has been going on slightly longer than that currently out of the therapeutic window for remdesivir chest x-ray was also negative for any acute infiltrate however the patient is bringing up some purulent sputum underlying secondary bacterial pneumonia not entirely excluded 2-sputum cultures currently pending patient did have elevated procalcitonin 3-leukocytosis more likely steroid related, patient white count is trending down 4-patient has shown clinical improvement wants to go home we will consider total of 5-day course of therapy for antibiotic including Rocephin she has received the initial therapy with Ceftin Dictation was produced using [employer] software. please excuse any grammatical, word or spelling errors.
== END 2024-03-10 14:19 | disposition home or self-care (01) | DRG 177 ==
LOC: EC 10:31 → 4SSUR 12:49 → OBSVTOIN 03-08 09:29
PROVIDERS: ADMIT Internal Medicine; ATTEND Internal Medicine
DX: U07.1 COVID-19 (principal); J12.82 Pneumonia due to coronavirus disease 2019; J96.01 Acute respiratory failure with hypoxia; E87.1 Hypo-osmolality and hyponatremia; E87.6 Hypokalemia; I10 Essential (primary) hypertension; M19.90 Unspecified osteoarthritis, unspecified site; J98.01 Acute bronchospasm; Z87.891 Personal history of nicotine dependence; E78.5 Hyperlipidemia, unspecified; E03.9 Hypothyroidism, unspecified; Z79.82 Long term (current) use of aspirin; Z79.890 Hormone replacement therapy; Z79.899 Other long term (current) drug therapy; Z86.16 Personal history of COVID-19; Z86.73 Personal history of transient ischemic attack (TIA), and cerebral infarction without residual deficits; Z90.710 Acquired absence of both cervix and uterus; Z90.49 Acquired absence of other specified parts of digestive tract
CPT/HCPCS: 36415; 71046; 71250; 80048; 80053; 83605; 83735; 84145; 85025; 85379; 85610; 85730; 87070; 87205; 87635; 93005; 94640; 94760; 96365; 96375; 99285

== ENCOUNTER → 2024-08-30 | Outpatient (CLI) | payer MEDICARE ==
--- NOTE | 2024-08-30 14:56 | MM ---
Reason for Exam: Screening (asymptomatic). Last mammogram was performed 6 year(s) and 2 month(s) ago. Patient History: Menarche at age 9. First Full-Term at age 16. Left ovary removed at age 28. Right ovary removed at age 28. Hysterectomy at age 28. Postmenopausal. Estrogen for 3 months starting at age 28. Risk Values: Jewell 5 year model risk: 1.4%. NCI Lifetime model risk: 3.8%. Prior Study Comparison: 08/17/2012 Right Diagnostic Mammogram, [facility]. 10/25/2015 Bilateral Screening Mammogram, [facility]. 07/10/2018 Bilateral Screening Mammogram, [facility]. Tissue Density: There are scattered areas of fibroglandular density. Findings: Analyzed By CAD. Chronic nodularity on both sides. Benign secretory calcifications bilaterally. There is no suspicious group of microcalcifications or new suspicious mass in either breast. Overall Assessment: Benign, BI-RAD 2 Management: Screening Mammogram of both breasts in 1 year. Patient should continue monthly self-breast exams. A clinical breast exam by your physician is recommended on an annual basis. This exam should not preclude additional follow-up of suspicious palpable abnormalities. Note on Jewell scores and lifetime risk: 1. A Jewell score greater than 3% is considered moderate risk. If this is the case, consider specialist referral to assess eligibility for a risk reducing agent. 2. If overall lifetime risk for the development of breast cancer is 20% or higher, the patient may qualify for future screening with alternating mammogram and breast MRI. [facility], , 08/30/2024 2:52 PM. Electronically signed and approved by: Naeem Morocho M.D. Radiologist
== END | disposition home or self-care (01) ==
LOC: RADMAMWWP 11:25
PROVIDERS: ATTEND Family Medicine
DX: Z12.31 Encounter for screening mammogram for malignant neoplasm of breast (principal); R92.323 Mammographic fibroglandular density, bilateral breasts; Z78.0 Asymptomatic menopausal state; Z90.722 Acquired absence of ovaries, bilateral
CPT/HCPCS: 77067